=== PATIENT | female | born 1960 | race Hispanic/Latino ===

== ENCOUNTER → 2017-07-08 | Outpatient (REF) | payer MEDICARE, MEDICAID | LOC: M SFHCPLAZ 16:32 | PROVIDERS: ATTEND Family Medicine | DX: E11.8 Type 2 diabetes mellitus with unspecified complications (principal); Z86.39 Personal history of other endocrine, nutritional and metabolic disease; R25.2 Cramp and spasm; Z86.2 Personal history of diseases of the blood and blood-forming organs and certain disorders involving the immune mechanism; Z05.3 Observation and evaluation of newborn for suspected respiratory condition ruled out ==

== ENCOUNTER → 2017-07-22 | Outpatient (REF) | payer MEDICARE, MEDICAID ==
[2017-07-22 19:08] LABS: PERCENT SATURATION 10.9 % (13.2-45.0)
[2017-07-23 11:17] LABS: PRETREATED FOLATE FOR RBCFOL 11.8 NG/ML
== END ==
LOC: M SFHCPLAZ 16:19
PROVIDERS: ATTEND Family Medicine
DX: D64.9 Anemia, unspecified (principal)
CPT/HCPCS: 36415; 82607; 82728; 82747; 83550; G0463

== ENCOUNTER → 2018-03-21 | Outpatient (CLI) | payer MEDICARE, MEDICAID ==
[~2018-03-21] MED LIST: GASTROGRAFIN SOLUTION 30ML (Q9963) As Ordered; ISOVUE-370 76% 100ML VIAL (Q9967) As Ordered
== END ==
LOC: M RAD 08:49
DX: R19.02 Left upper quadrant abdominal swelling, mass and lump (principal)
CPT/HCPCS: Q9963

== ENCOUNTER → 2018-03-28 | Outpatient (CLI) | payer MEDICARE, MEDICAID ==
[2018-03-28 13:18] LABS: HEMATOCRIT 35.9 % (36.0-47.0); HEMOGLOBIN 11.1 g/dl (12.0-15.5); MEAN CORPUSCULAR HEMOGLOBIN 26.1 pg (27.0-33.0); MEAN CORPUSCULAR HGB CONC 30.9 g/dl (32.0-36.5); MEAN CORPUSCULAR VOLUME 84.3 fl (80.0-96.0); PLATELET COUNT, AUTOMATED 269 10^3/uL (150-450); RED BLOOD COUNT 4.26 10^6/uL (4.00-5.40); RED CELL DISTRIBUTION WIDTH 16.3 % (11.5-14.5); WHITE BLOOD COUNT 6.7 10^3/uL (4.0-10.0)
[2018-03-28 13:29] LABS: INR 0.95; PROTHROMBIN TIME 12.7 SECONDS (12.4-14.5)
[2018-03-28 13:30] LABS: PARTIAL THROMBOPLASTIN TIME 29.4 SECONDS (26.8-37.9)
[2018-03-28 13:48] LABS: ALBUMIN 4.2 GM/DL (3.2-5.2); ALBUMIN/GLOBULIN RATIO 0.98 (1.00-1.93); ALKALINE PHOSPHATASE 81 U/L (45-117); ALT/SGPT 21 U/L (12-78); ANION GAP 8 MEQ/L (8-16); AST/SGOT 16 U/L (7-37); BILIRUBIN,TOTAL 0.4 MG/DL (0.2-1.0); BLOOD UREA NITROGEN 23 MG/DL (7-18); CALCIUM LEVEL 9.4 MG/DL (8.5-10.1); CARBON DIOXIDE LEVEL 28 MEQ/L (21-32); CHLORIDE LEVEL 103 MEQ/L (98-107); CREATININE FOR GFR 1.17 MG/DL (0.55-1.30); GLOMERULAR FILTRATION RATE 50.4 (>51); GLUCOSE, FASTING 227 MG/DL (70-100); POTASSIUM SERUM 4.3 MEQ/L (3.5-5.1); SODIUM LEVEL 139 MEQ/L (136-145); TOTAL PROTEIN 8.5 GM/DL (6.4-8.2)
== END ==
LOC: M SMT 09:39
DX: Z01.818 Encounter for other preprocedural examination (principal); N28.89 Other specified disorders of kidney and ureter; Z79.84 Long term (current) use of oral hypoglycemic drugs; Z79.82 Long term (current) use of aspirin; Z79.899 Other long term (current) drug therapy
CPT/HCPCS: 80053

== ENCOUNTER → 2018-03-31 | Outpatient (CLI) | payer MEDICARE, MEDICAID | LOC: M WHC 08:00 | DX: N83.9 Noninflammatory disorder of ovary, fallopian tube and broad ligament, unspecified (principal) | CPT/HCPCS: 76817 ==

== ENCOUNTER → 2018-04-03 | Outpatient (CLI) | payer MEDICARE, MEDICAID | LOC: M CARPUL 11:11 | DX: I44.7 Left bundle-branch block, unspecified (principal) ==

== ENCOUNTER 2018-04-04 10:46 | Inpatient (IN) | payer MEDICARE, MEDICAID ==
[2018-04-04] MEDS: ROSUVASTATIN 10 MG TAB (CRESTOR) PO (09:00)
[2018-04-04] MEDS ORDERED: LIDOCAINE 1% MDV 20ML VIAL SQ (11:00)
[2018-04-04] MEDS: LR 1,000 ML IV ×2 (11:37→19:30)
[2018-04-04 12:18] LABS: BEDSIDE GLUCOSE 139 MG/DL (70-105)
[2018-04-04] MEDS ORDERED: GLUCOSE 4 GM CHEW TABLET PO (15:00)
[2018-04-04] MEDS ORDERED: MORPHINE 4 MG/ML 1ML VIAL/SYRINGE (J2270) IV (15:00)
[2018-04-04] MEDS ORDERED: GLUCAGON FOR INJ 1 MG VIAL (J1610) SC (15:00)
[2018-04-04] MEDS ORDERED: ONDANSETRON 4MG/2ML VIAL (J2405) IV ×2 (15:00→19:30)
[2018-04-04] MEDS ORDERED: ACETAMINOPHEN TAB 650MG DOSE (2X325MG) PO (15:00)
[2018-04-04] MEDS ORDERED: PERCOCET 5MG/325MG TAB PO ×2 (15:00→19:30)
[2018-04-04] MEDS ORDERED: DEXTROSE 50% 50 ML SYRINGE IV (15:00)
[2018-04-04] MEDS ORDERED: PROPOFOL 200 MG/20 ML VIAL As Ordered (15:33)
[2018-04-04] MEDS ORDERED: LIDOCAINE 2% INJ 100 MG/5 ML SDV (FOR ANES.) As Ordered (15:33)
[2018-04-04] MEDS ORDERED: MIDAZOLAM INJ 2 MG/2 ML VIAL (J2250) As Ordered (15:33)
[2018-04-04] MEDS ORDERED: dexameTHASONE 4 MG/ML 1ML VIAL (J1100) As Ordered (15:33)
[2018-04-04] MEDS ORDERED: ROCURONIUM BROMIDE 50 MG/5 ML VIAL As Ordered ×3 (15:33→16:27)
[2018-04-04] MEDS ORDERED: fentaNYL 250 MCG/5 ML INJECTION (J3010) As Ordered (15:33)
[2018-04-04] MEDS ORDERED: METOCLOPRAMIDE INJ 10MG/2ML VIAL (J2765) As Ordered (15:33)
[2018-04-04] MEDS ORDERED: HYDROmorphone HCL 2 MG/ML 1ML VIAL (J1170) As Ordered (15:34)
[2018-04-04] MEDS ORDERED: GLYCOPYRROLATE INJ 0.2 MG/ML 2 ML VIAL As Ordered ×2 (15:35)
[2018-04-04] MEDS ORDERED: ONDANSETRON 4MG/2ML VIAL (J2405) As Ordered (15:35)
[2018-04-04] MEDS ORDERED: NEOSTIGMINE 10 MG/10 ML VIAL (J2710) As Ordered (15:35)
[2018-04-04] MEDS: GABAPENTIN 300 MG CAP PO ×2 (16:00→22:44)
[2018-04-04] MEDS: FILTER 1.2 MICRON (ADULT TPN/MANNITOL/REMICADE) XX (16:57)
[2018-04-04] MEDS: MANNITOL 25% 12.5 GM/50 ML VIAL (J2150) As Ordered (17:13)
[2018-04-04] MEDS: HumaLOG INSULIN (NovoLOG) PER UNIT SC ×2 (17:30→20:10)
[2018-04-04] MEDS: BUPIVACAINE HCL 0.25% 30 ML VIAL As Ordered (18:56)
[2018-04-04] MEDS: LIDOCAINE 1% SDV INJ 30 ML VIAL As Ordered (18:58)
[2018-04-04] MEDS ORDERED: MEPERIDINE INJ 25 MG/ML VIAL (J2175) IV (19:30)
[2018-04-04] MEDS ORDERED: METOCLOPRAMIDE INJ 10MG/2ML VIAL (J2765) IV (19:30)
[2018-04-04] MEDS ORDERED: fentaNYL 100 MCG/2 ML INJECTION (J3010) IV (19:30)
[2018-04-04 19:40] LABS: HEMATOCRIT 32.8 % (36.0-47.0); HEMOGLOBIN 10.1 g/dl (12.0-15.5); MEAN CORPUSCULAR HGB CONC 30.8 g/dl (32.0-36.5); MEAN CORPUSCULAR VOLUME 84.3 fl (80.0-96.0); PLATELET COUNT, AUTOMATED 235 10^3/uL (150-450); RED BLOOD COUNT 3.89 10^6/uL (4.00-5.40); RED CELL DISTRIBUTION WIDTH 15.6 % (11.5-14.5); WHITE BLOOD COUNT 10.5 10^3/uL (4.0-10.0)
[2018-04-04 20:10] LABS: ANION GAP 10 MEQ/L (8-16); BLOOD UREA NITROGEN 16 MG/DL (7-18); CALCIUM LEVEL 8.4 MG/DL (8.5-10.1); CARBON DIOXIDE LEVEL 25 MEQ/L (21-32); CHLORIDE LEVEL 104 MEQ/L (98-107); CREATININE FOR GFR 1.07 MG/DL (0.55-1.30); GLOMERULAR FILTRATION RATE 55.9 (>51); GLUCOSE, FASTING 294 MG/DL (70-100); POTASSIUM SERUM 4.3 MEQ/L (3.5-5.1); SODIUM LEVEL 139 MEQ/L (136-145)
[2018-04-04 21:04] LABS: BEDSIDE GLUCOSE 320 MG/DL (70-105)
[2018-04-04] MEDS: ceFAZolin SOD 1 GM in D5W MINI-BAG PLUS 50 ML IV (22:43)
[2018-04-04] MEDS: NS 1,000 ML IV ×2 (22:43→22:47)
[2018-04-04] MEDS: DOCUSATE SODIUM 100 MG CAP PO (22:44)
[2018-04-05 01:41] LABS: BEDSIDE GLUCOSE 218 MG/DL (70-105)
[2018-04-05] MEDS: PERCOCET 5MG/325MG TAB PO ×3 (05:18→17:20)
[2018-04-05] MEDS: ceFAZolin SOD 1 GM in D5W MINI-BAG PLUS 50 ML IV (06:29)
[2018-04-05] MEDS: NS 1,000 ML IV (06:29)
[2018-04-05 06:40] LABS: HEMATOCRIT 28.4 % (36.0-47.0); MEAN CORPUSCULAR HEMOGLOBIN 26.1 pg (27.0-33.0); MEAN CORPUSCULAR HGB CONC 31.7 g/dl (32.0-36.5); MEAN CORPUSCULAR VOLUME 82.3 fl (80.0-96.0); PLATELET COUNT, AUTOMATED 227 10^3/uL (150-450); RED BLOOD COUNT 3.45 10^6/uL (4.00-5.40); RED CELL DISTRIBUTION WIDTH 15.4 % (11.5-14.5); WHITE BLOOD COUNT 7.3 10^3/uL (4.0-10.0)
[2018-04-05 06:56] LABS: ANION GAP 6 MEQ/L (8-16); BLOOD UREA NITROGEN 14 MG/DL (7-18); CALCIUM LEVEL 8.5 MG/DL (8.5-10.1); CARBON DIOXIDE LEVEL 28 MEQ/L (21-32); CHLORIDE LEVEL 105 MEQ/L (98-107); CREATININE FOR GFR 1.01 MG/DL (0.55-1.30); GLOMERULAR FILTRATION RATE 59.7 (>51); GLUCOSE, FASTING 170 MG/DL (70-100); POTASSIUM SERUM 4.5 MEQ/L (3.5-5.1); SODIUM LEVEL 139 MEQ/L (136-145)
[2018-04-05] MEDS: DOCUSATE SODIUM 100 MG CAP PO (08:03)
[2018-04-05] MEDS: HumaLOG INSULIN (NovoLOG) PER UNIT SC ×3 (08:03→17:19)
[2018-04-05] MEDS: GABAPENTIN 300 MG CAP PO ×2 (08:04→17:05)
[2018-04-05] MEDS: ROSUVASTATIN 10 MG TAB (CRESTOR) PO (08:05)
[2018-04-05] MEDS: LISINOPRIL 5 MG TAB PO (08:06)
[2018-04-05] MEDS: ASPIRIN 81 MG ENTERIC TAB PO (08:06)
[2018-04-05] MEDS: FUROSEMIDE 20 MG/2 ML VIAL (J1940) IV (10:16)
[2018-04-05 12:12] LABS: BEDSIDE GLUCOSE 122 MG/DL (70-105)
[2018-04-05 17:11] LABS: BEDSIDE GLUCOSE 216 MG/DL (70-105)
[2018-04-08 12:00] LABS: BEDSIDE GLUCOSE 321 MG/DL (70-105)
== END 2018-04-05 18:36 | disposition home or self-care (01) | DRG 661 ==
LOC: M OR 10:46 → M MS5PR 20:32
PROVIDERS: Urology
PROC: 0TB04ZZ Excision of Right Kidney, Percutaneous Endoscopic Approach (ICD-10-PCS; principal; 2018-04-04 12:45)
DX: N28.89 Other specified disorders of kidney and ureter (principal); I44.7 Left bundle-branch block, unspecified; E11.42 Type 2 diabetes mellitus with diabetic polyneuropathy; E78.2 Mixed hyperlipidemia; Z86.2 Personal history of diseases of the blood and blood-forming organs and certain disorders involving the immune mechanism; E11.319 Type 2 diabetes mellitus with unspecified diabetic retinopathy without macular edema; H54.8 Legal blindness, as defined in USA; Z86.73 Personal history of transient ischemic attack (TIA), and cerebral infarction without residual deficits

== ENCOUNTER → 2018-04-28 | Outpatient (REF) | payer MEDICARE, MEDICAID | LOC: M LABSMT 10:05 | DX: D21.9 Benign neoplasm of connective and other soft tissue, unspecified (principal); Z09 Encounter for follow-up examination after completed treatment for conditions other than malignant neoplasm ==

== ENCOUNTER → 2018-05-20 | Outpatient (CLI) | payer MEDICARE, MEDICAID ==
[2018-05-20 14:02] LABS: HEMATOCRIT 34.5 % (36.0-47.0); HEMOGLOBIN 10.5 g/dl (12.0-15.5); MEAN CORPUSCULAR HEMOGLOBIN 25.9 pg (27.0-33.0); MEAN CORPUSCULAR HGB CONC 30.4 g/dl (32.0-36.5); PLATELET COUNT, AUTOMATED 361 10^3/uL (150-450); RED BLOOD COUNT 4.06 10^6/uL (4.00-5.40); RED CELL DISTRIBUTION WIDTH 15.4 % (11.5-14.5); WHITE BLOOD COUNT 7.1 10^3/uL (4.0-10.0)
[2018-05-20 14:14] LABS: ANION GAP 8 MEQ/L (8-16); BLOOD UREA NITROGEN 18 MG/DL (7-18); CALCIUM LEVEL 9.3 MG/DL (8.5-10.1); CARBON DIOXIDE LEVEL 28 MEQ/L (21-32); CHLORIDE LEVEL 102 MEQ/L (98-107); CREATININE FOR GFR 1.08 MG/DL (0.55-1.30); GLOMERULAR FILTRATION RATE 55.3 (>51); GLUCOSE, FASTING 237 MG/DL (70-100); POTASSIUM SERUM 4.8 MEQ/L (3.5-5.1); SODIUM LEVEL 138 MEQ/L (136-145)
== END ==
LOC: M SMT 08:07
DX: D21.9 Benign neoplasm of connective and other soft tissue, unspecified (principal)
CPT/HCPCS: 80048

== ENCOUNTER → 2018-08-13 | Outpatient (REF) | payer MEDICARE, MEDICAID | LOC: M LAB REF 19:17 | DX: N85.8 Other specified noninflammatory disorders of uterus (principal) | CPT/HCPCS: 88304 ==

== ENCOUNTER → 2018-10-01 | Outpatient (REF) | payer MEDICARE, MEDICAID ==
[2018-10-01 17:40] LABS: BASO % 0.3 % (0.0-1.0); EOS # 0.1 10^3/uL (0.0-0.50); EOS % 1.9 % (0.0-3.0); HEMATOCRIT 35.1 % (36.0-47.0); HEMOGLOBIN 10.6 g/dl (12.0-15.5); IMMATURE GRANULOCYTE % 0.4 % (0-3.0); LYMPH # 2.3 10^3/uL (1.5-4.5); LYMPH % 32.2 % (24.0-44.0); MEAN CORPUSCULAR HGB CONC 30.2 g/dl (32.0-36.5); MEAN CORPUSCULAR VOLUME 82.8 fl (80.0-96.0); MONO # 0.6 10^3/uL (0.0-0.8); NEUTROPHILS % 57.2 % (36.0-66.0); PLATELET COUNT, AUTOMATED 334 10^3/uL (150-450); RED BLOOD COUNT 4.24 10^6/uL (4.00-5.40); RED CELL DISTRIBUTION WIDTH 16.3 % (11.5-14.5)
[2018-10-01 17:51] LABS: ALKALINE PHOSPHATASE 94 U/L (45-117); ALT/SGPT 27 U/L (12-78); ANION GAP 7 MEQ/L (8-16); AST/SGOT 16 U/L (7-37); BILIRUBIN,TOTAL 0.2 MG/DL (0.2-1.0); BLOOD UREA NITROGEN 25 MG/DL (7-18); CALCIUM LEVEL 9.7 MG/DL (8.5-10.1); CARBON DIOXIDE LEVEL 28 MEQ/L (21-32); CHLORIDE LEVEL 102 MEQ/L (98-107); CHOLESTEROL LEVEL 130 MG/DL (<200); CHOLESTEROL RISK RATIO 2.765 (<5); CPK CREATINE PHOSPHOKINASE 73 U/L (26-192); CREATININE FOR GFR 1.16 MG/DL (0.55-1.30); FERRITIN 21 NG/ML (8-252); GLOMERULAR FILTRATION RATE 50.9 (>51); GLUCOSE, FASTING 180 MG/DL (70-100); HDL CHOLESTEROL 47 MG/DL (>40); IRON (FE) 38 UG/DL (50-170); LDL CHOLESTEROL 57 MG/DL (<100); NON-HDL-C 83 MG/DL; PERCENT SATURATION 7.9 % (13.2-45.0); POTASSIUM SERUM 4.5 MEQ/L (3.5-5.1); SODIUM LEVEL 137 MEQ/L (136-145); TOTAL IRON BINDING CAPACITY 478 UG/DL (250-450); TRIGLYCERIDES LEVEL 129 MG/DL (<150)
[2018-10-01 17:52] LABS: ESTIMATED AVERAGE GLUCOSE 160 MG/DL (60-110); HEMOGLOBIN A1c 7.2 %
== END ==
LOC: M SFHCPLAZ 14:30
DX: E11.8 Type 2 diabetes mellitus with unspecified complications (principal); E78.2 Mixed hyperlipidemia; Z12.11 Encounter for screening for malignant neoplasm of colon; Z86.2 Personal history of diseases of the blood and blood-forming organs and certain disorders involving the immune mechanism
CPT/HCPCS: 82550

== ENCOUNTER → 2019-01-06 | Outpatient (REF) | payer MEDICARE, MEDICAID ==
[~2019-01-06] MED LIST changes: +ASPI81CH PO; +BYDU2INJ7 SC; +COLA100C5 PO; +CRES20TA PO; +GABA-843 PO; -GASTROGRAFIN SOLUTION 30ML (Q9963) As Ordered; +GLIP10TA6 PO; -ISOVUE-370 76% 100ML VIAL (Q9967) As Ordered; +LISI-542 PO; +METF500T13 PO; +OXYC1TAB23 PO; +PIOG1TAB37 PO; +RANI1SYP PO; +TYLE325C PO
[2019-01-06 11:59] LABS: HEMATOCRIT 34.8 % (36.0-47.0); HEMOGLOBIN 10.8 g/dl (12.0-15.5); MEAN CORPUSCULAR HEMOGLOBIN 24.9 pg (27.0-33.0); MEAN CORPUSCULAR VOLUME 80.4 fl (80.0-96.0); PLATELET COUNT, AUTOMATED 297 10^3/uL (150-450); RED BLOOD COUNT 4.33 10^6/uL (4.00-5.40); WHITE BLOOD COUNT 6.5 10^3/uL (4.0-10.0)
[2019-01-06 12:25] LABS: HEMOGLOBIN A1c 9.4 %
[2019-01-06 12:27] LABS: CALCIUM LEVEL 9.5 MG/DL (8.5-10.1); CREATININE FOR GFR 1.05 MG/DL (0.55-1.30); GLOMERULAR FILTRATION RATE 57.1 (>51); POTASSIUM SERUM 4.4 MEQ/L (3.5-5.1)
== END ==
LOC: M SFHCPLAZ 10:49
PROVIDERS: ATTEND Family Medicine
DX: E11.42 Type 2 diabetes mellitus with diabetic polyneuropathy (principal); R94.4 Abnormal results of kidney function studies; Z86.2 Personal history of diseases of the blood and blood-forming organs and certain disorders involving the immune mechanism
CPT/HCPCS: 36415; 80048; 83036; 85027; G0463

== ENCOUNTER 2019-03-20 10:45 | Day surgery (SDC) | payer MEDICARE, MEDICAID ==
[~2019-03-20] VITALS: Ht 149.9 cm; Wt 84.5 kg
[~2019-03-20 10:45] MED LIST changes: -ASPI81CH PO; +ASPI81CH49 PO; -CRES20TA PO; +CRES20TA2 PO
[2019-03-20] MEDS ORDERED: ONDANSETRON 4MG/2ML VIAL (J2405) IV ONE (11:30)
[2019-03-20] MEDS ORDERED: TRUL10IN SC (11:32)
[2019-03-20] MEDS ORDERED: GLIP10TA PO (11:32)
[2019-03-20 11:38] LABS: BASO % 0.3 % (0.0-1.0); EOS % 0.1 % (0.0-3.0); HEMATOCRIT 35.3 % (36.0-47.0); HEMOGLOBIN 10.9 g/dl (12.0-15.5); LYMPH # 2.5 10^3/uL (1.5-4.5); LYMPH % 21.8 % (24.0-44.0); MEAN CORPUSCULAR HEMOGLOBIN 25.1 pg (27.0-33.0); MEAN CORPUSCULAR HGB CONC 30.9 g/dl (32.0-36.5); MEAN CORPUSCULAR VOLUME 81.3 fl (80.0-96.0); MONO % 8.7 % (0.0-5.0); NEUTROPHILS # 7.9 10^3/uL (1.8-7.7); NEUTROPHILS % 68.8 % (36.0-66.0); PLATELET COUNT, AUTOMATED 307 10^3/uL (150-450); RED BLOOD COUNT 4.34 10^6/uL (4.00-5.40); WHITE BLOOD COUNT 11.4 10^3/uL (4.0-10.0)
[2019-03-20 12:09] LABS: ALBUMIN 4.2 GM/DL (3.2-5.2); ALT/SGPT 21 U/L (12-78); AMYLASE 50 U/L (25-115); BILIRUBIN,DIRECT 0.1 MG/DL (0.0-0.2); BILIRUBIN,TOTAL 0.4 MG/DL (0.2-1.0); BLOOD UREA NITROGEN 26 MG/DL (7-18); CALCIUM LEVEL 9.6 MG/DL (8.5-10.1); CARBON DIOXIDE LEVEL 27 MEQ/L (21-32); CHLORIDE LEVEL 105 MEQ/L (98-107); CK-MB VALUE MASS < 1.0 NG/ML (<3.6); CPK CREATINE PHOSPHOKINASE 54 U/L (26-192); CREATININE FOR GFR 1.77 MG/DL (0.55-1.30); GLOMERULAR FILTRATION RATE 31.3 (>51); GLUCOSE, FASTING 158 MG/DL (70-100); LIPASE 125 U/L (73-393); MB/CK RELATIVE INDEX 1.85 (< OR =4); POTASSIUM SERUM 4.1 MEQ/L (3.5-5.1); SODIUM LEVEL 140 MEQ/L (136-145); TOTAL PROTEIN 8.1 GM/DL (6.4-8.2); TROPONIN I < 0.02 NG/ML (< 0.10)
[2019-03-20] MEDS ORDERED: NS 1,000 ML IV ONE (13:00)
[2019-03-20] MEDS ORDERED: MORPHINE 2 MG/ML 1ML SYRINGE (J2270) IV ONE ×2 (13:15→14:15)
--- NOTE | 2019-03-20 13:51 | REP ---
CT ABDOMEN/PELVIS WITHOUT CONTRAST: CT abdomen/pelvis performed without oral or IV contrast. Sagittal and coronal reconstruction images are performed. Comparison made with prior CT, 03/21/2018. There is a stable subcentimeter nodular density in the left posterior costophrenic sulcus. There are very mild bibasilar fibrotic changes. Liver, gallbladder, spleen, and pancreas are grossly unremarkable. Adrenal gland thickening is noted, unchanged. There is no left hydronephrosis or nephrolithiasis, nor evidence of hydroureter. There is, however, moderate degree of right hydronephrosis caused by a stone in the proximal right ureter, which measures 13 x 10 x 8 mm. Previously noted mass in the lower pole of the right kidney has been removed with surgical sutures in that region. Subcentimeter calculus is seen in the right upper pole collecting system measuring about 3 mm. There is no abdominal aortic aneurysm. There is no adenopathy. There is no free air or free fluid. There is no bowel wall thickening. There are calcified mesenteric lymph nodes centrally. There is no evidence of appendicitis. No pelvic mass is seen. There are mild degenerative changes of the spine. There is a small hiatal hernia. IMPRESSION: Calculus in the proximal right ureter measuring 13 x 10 x 8 mm causes moderate degree of right hydronephrosis. There is also a 3 mm intrarenal calculus in the upper pole of the right kidney. No left hydronephrosis. No evidence of appendicitis. No other acute finding. Electronically Signed by Saleem Hodges MD 03/23/2019 01:37 P
[2019-03-20] MEDS ORDERED: OMEP-218 PO (14:33)
[2019-03-20] MEDS ORDERED: RANI1TAB6 PO (14:33)
[2019-03-20] MEDS ORDERED: METF500T4 PO (14:33)
[2019-03-20] MEDS ORDERED: NS 1,000 ML IV SCH (18:02)
[2019-03-20] MEDS ORDERED: MORPHINE 4 MG/ML 1ML VIAL/SYRINGE (J2270) IV PRN (18:15)
[2019-03-20] MEDS ORDERED: PERCOCET 5MG/325MG TAB PO PRN ×2 (18:15)
[2019-03-20] MEDS ORDERED: DEXTROSE 50% 50 ML SYRINGE IV PRN (18:15)
[2019-03-20] MEDS ORDERED: ONDANSETRON 4MG/2ML VIAL (J2405) IV PRN (18:15)
[2019-03-20] MEDS ORDERED: GLUCAGON FOR INJ 1 MG VIAL (J1610) SC PRN (18:15)
[2019-03-20] MEDS ORDERED: cefTRIAXone SOD 1 GM in D5W MINI-BAG PLUS 50 ML IV ONE (18:15)
[2019-03-20] MEDS ORDERED: ACETAMINOPHEN TAB 650MG DOSE (2X325MG) PO PRN (18:15)
[2019-03-20] MEDS ORDERED: GLUCOSE 4 GM CHEW TABLET PO PRN (18:15)
--- NOTE | 2019-03-20 18:33 | SMCUROLCON ---
Urology Consultation General Date of Consultation 03/20/19 Reason For Consultation This patient is seen for Kidney Stone. History of Present Illness This is a 58 y/o F w/ PMH significant for DM2, TIA, legally blind, right renal mass (leiomyoma s/p robotic partial nephrectomy 03/2018), HTN, and kidney stones, presenting to the ER today w/ acute onset right flank pain. She notes that the pain started yesterday evening and was associated w/ n/v. She denies fevers or dysuria. A noncontrast CT A/P obtained in the ER was notable for moderate right hydro due to an obstructing 1.3cm proximal right ureteral stone. Her WBC was mildly elevated at 11.4 and Cr was 1.77 from baseline of 1.1. UA notable for on ly 3 WBCs. Despite several doses of pain medications in the ER her pain has not been well-controlled. Past Medical History Medical History see HPI Surgical Hstory right robotic partial nephrectomy Medications Current Medications Current Medications Acetaminophen (Tylenol Tab) 650 mg Q4HP PRN PO MILD PAIN or TEMP > 101; Start 03/20/19 at 18:15 Dextrose (Dextrose 50%) 25 ml ASDIRECTED PRN IV SEE LABEL COMMENTS; Start 03/20/19 at 18:15 Docusate Sodium (Colace) 100 mg BID PO ; Start 03/20/19 at 21:00 Gabapentin (Neurontin) 600 mg Q8H PO ; Start 03/20/19 at 22:00 Glucagon (Glucagon) 1 mg ASDIRECTED PRN SC SEE LABEL COMMENTS; Start 03/20/19 at 18:15 Glucose (Glucose) 16 GM ASDIRECTED PRN PO SEE LABEL COMMENTS; Start 03/20/19 at 18:15 Home Med (Med Rec Complete!) ASDIRECTED XX ; Start 03/20/19 at 14:45; Stop 03/20/19 at 14:45; Status DC Insulin Human Lispro (HumaLOG INSULIN) See Protocol Table AC SC ; Start 03/21/19 at 07:30 Insulin Human Lispro (HumaLOG INSULIN) See Protocol Table QHS SC ; Start 03/20/19 at 21:00 Morphine Sulfate (Morphine Sulfate Inj) 2 mg Q2HP PRN IV SEVERE PAIN (PS 8-10); Start 03/20/19 at 18:15 Omeprazole (PriLOSEC) 20 mg DAILY PO ; Start 03/21/19 at 09:00 Ondansetron HCl (ZOFRAN INJection) 4 mg Q6HP PRN IV NAUSEA OR VOMITING; Start 03/20/19 at 18:15 Oxycodone/ Acetaminophen (Percocet 5mg/ 325mg Tablet) 1 tab Q4HP PRN PO MODERATE PAIN (PS 5-7); Start 03/20/19 at 18:15 Oxycodone/ Acetaminophen (Percocet 5mg/ 325mg Tablet) 2 tab Q4HP PRN PO MODERATE/SEVERE PAIN (PS 5-10); Start 03/20/19 at 18:15 Rosuvastatin Calcium (Crestor) 20 mg DAILY PO ; Start 03/21/19 at 09:00 Sodium Chloride 1,000 ml @ 75 mls/hr [id number] IV ; Start 03/20/19 at 18:02 Allergies Allergies: Coded Allergies: meclizine (Verified Allergy, Unknown, 03/20/19) Review of Systems Constitutional: Denies: Fever Pulmonary: Denies: Dyspnea, Cough Cardiovascular: Denies Chest Pain, Denies Palpitations Gastrointestinal: Reports: Nausea, Vomiting Genitourinary: Denies: Dysuria, Hematuria Musculoskeletal: Reports: Back Pain (right flank pain) Neurological: Denies: Weakness, Numbness Psych: Reports: Mood Normal Physical Examination General Exam: Alert, Cooperative, No Acute Distress Heart Exam: Rate Normal, Regular Rhythm Abdomen Exam: Soft; No: Tenderness Skin Exam: Nl turgor and temperature Neuro Exam: Normal Speech Psych Exam: Mental status NL, Mood NL Vital Signs/I&O Vital Signs Date Time Temp Pulse Resp B/P (MAP) Pulse Ox O2 Delivery O2 Flow Rate FiO2 03/20/19 14:18 18 03/20/19 14:08 99.2 99 138/61 (86) 97 Room Air Laboratory Data 24H Labs Laboratory Tests 2 03/20/19 11:15: Immature Granulocyte % (Auto) 0.3, White Blood Count 11.4H, Red Blood Count 4.34, Hemoglobin 10.9L, Hematocrit 35.3L, Mean Corpuscular Volume 81.3, Mean Corpuscular Hemoglobin 25.1L, Mean Corpuscular Hemoglobin Concent 30.9L, Red Cell Distribution Width 16.2H, Platelet Count 307, Neutrophils (%) (Auto) 68.8H, Lymphocytes (%) (Auto) 21.8L, Monocytes (%) (Auto) 8.7H, Eosinophils (%) (Auto) 0.1, Basophils (%) (Auto) 0.3, Neutrophils # (Auto) 7.9H, Lymphocytes # (Auto) 2.5, Monocytes # (Auto) 1.0H, Eosinophils # (Auto) 0.0, Basophils # (Auto) 0.0, Nucleated Red Blood Cells % (auto) 0.0, Anion Gap 8, Glomerular Filtration Rate 31.3L, Calcium Level 9.6, Aspartate Amino Transf (AST/SGOT) 18, Alanine Aminotransferase (ALT/SGPT) 21, Alkaline Phosphatase 74, Total Bilirubin 0.4, Direct Bilirubin 0.1, Total Creatine Kinase 54, Creatine Kinase MB < 1.0, Creatine Kinase MB Relative Index 1.85, Troponin I < 0.02, Total Protein 8.1, Albumin 4.2, Albumin/Globulin Ratio 1.08, Amylase Level 50, Lipase 125 03/20/19 11:43: Urine Color YELLOW, Urine Appearance CLEAR, Urine pH 5.0, Urine Specific Sharon 1.023, Urine Protein NEGATIVE, Urine Glucose (UA) NEGATIVE, Urine Ketones TRACEH, Urine Blood 1+H, Urine Nitrite NEGATIVE, Urine Bilirubin NEGATIVE, Urine Urobilinogen 0.2, Urine Leukocyte Esterase NEGATIVE, Urine WBC (Auto) 3, Urine RBC (Auto) 5H, Urine Hyaline Casts (Auto) 0, Urine Bacteria (Auto) NEGATIVE, Urine Squamous Epithelial Cells 1, Urine Mucus (Auto) SMALL, Urine Sperm (Auto) CBC/BMP Laboratory Tests 03/20/19 11:15 Red Blood Count 4.34, Mean Corpuscular Volume 81.3, Mean Corpuscular Hemoglobin 25.1 L, Mean Corpuscular Hemoglobin Concent 30.9 L, Red Cell Distribution Width 16.2 H, Neutrophils (%) (Auto) 68.8 H, Lymphocytes (%) (Auto) 21.8 L, Monocytes (%) (Auto) 8.7 H, Eosinophils (%) (Auto) 0.1, Basophils (%) (Auto) 0.3, Neutro phils # (Auto) 7.9 H, Lymphocytes # (Auto) 2.5, Monocytes # (Auto) 1.0 H, Eosinophils # (Auto) 0.0, Basophils # (Auto) 0.0 Assessment This is a 58 y/o F w/ MONSE and intractable pain due to a 1.3cm obstructing right ureteral stone. She will be admitted for pain control and kept NPO for possible cystoscopy and right ureteral stent placement this evening. Informed consent was signed in presence of her daughter after a discussion of the risks and benefits of the procedure. Plan - admit for same day surgery - percocet, morphine prn pain - IVF - strict I/Os - SCDs - SQH - rocephin ordered - NPO - patient signed out to Dr. Huff for possible cystoscopy and right ureteral stent placement this evening VALERIE DOVE MD Mar 20, 2019 18:33
--- NOTE | 2019-03-20 19:53 | ECGEPIP ---
Stationary ECG Study [facility] - ED Test Date: 2019-03-20 Pat Name: ANDREZ LIPSCOMB Department: Room: - Gender: F Rn Appeals: : 1960 Requested By: ROBERT Johnson PA-C Order Number: [id number] Reading MD: Audra Landrum Measurements Intervals [place] Rate: 75 P: 49 MA: 172 QRS: -7 QRSD: 133 T: 33 QT: 379 QTc: 426 Interpretive Statements SINUS RHYTHM LEFT BUNDLE BRANCH BLOCK NO PRIOR FOR COMPARISON Electronically Signed On 03-20-2019 19:53:24 EDT by Audra Landrum
[2019-03-20] MEDS ORDERED: LIDOCAINE 2% 5ML JELLY UROJET As Ordered ONE (20:54)
[2019-03-20] MEDS ORDERED: ceFAZolin 2 GM/D5W 50 ML IV BAG (J0690 PER 500MG) As Ordered ONE (20:54)
[2019-03-20] MEDS ORDERED: CONRAY-60 60% 50ML VIAL (Q9961) As Ordered ONE (20:58)
[2019-03-20] MEDS ORDERED: DOCUSATE SODIUM 100 MG CAP PO SCH (21:00)
[2019-03-20] MEDS ORDERED: HumaLOG INSULIN (NovoLOG) PER UNIT SC SCH (21:00)
[2019-03-20] MEDS ORDERED: dexameTHASONE 4 MG/ML 1ML VIAL (J1100) As Ordered ONE (21:13)
[2019-03-20] MEDS ORDERED: fentaNYL 250 MCG/5 ML INJECTION (J3010) As Ordered ONE (21:13)
[2019-03-20] MEDS ORDERED: MIDAZOLAM INJ 2 MG/2 ML VIAL (J2250) As Ordered ONE (21:13)
[2019-03-20] MEDS ORDERED: PROPOFOL 200 MG/20 ML VIAL As Ordered ONE (21:13)
[2019-03-20] MEDS ORDERED: ONDANSETRON 4MG/2ML VIAL (J2405) As Ordered ONE (21:13)
[2019-03-20] MEDS ORDERED: LIDOCAINE 2% INJ 100 MG/5 ML SDV (FOR ANES.) As Ordered ONE (21:13)
--- NOTE | 2019-03-20 21:35 | ROOPDOC ---
[facility] Report Of Operation Report of Operation The patient was seen on 03/20/19 at 21:34. DATE OF PROCEDURE: 03/20/19 PREPROCEDURE DIAGNOSES:right ureteral obstruction POSTPROCEDURE DIAGNOSES: same as above. PROCEDURE: cystoscopy/right retrograde pyelogram/stone displacement/insertion of 6F variable length JJ stent. SURGEON: Kathrin Srinivasan MD SOLDERER TORCH: none ANESTHESIA: MAC. ESTIMATED BLOOD LOSS: Approximately <5 mL. COMPLICATIONS: none. REMARKS: stone displaced. PROCEDURE NOTE: Patient brought to the operating room and placed in the dorsallithotomy position after the induction of anesthesia (IV sedation). Complete time out performed. Perineum and genitalia were prepped and draped in usual sterile fashion. 22f cystourethroscope placed per urethra. Cystoscopy performed which was unremarkbale. Normal urothelium. No evidence of any tumor recurrence. 6f open ended ureteral cahter was advanced under fluoroscopic guidance. Clear efflux of urine was noted. The stone was easily idenitfied. [place] GW was advanced and the stone was easily displaced to renal pelvic. Retrograde pyleogram was performed with 8cc 50% contrast.Collecting system was opacified. Stone was seen as a filling defect. No other pathology was visualized. The ureteral catheter was exchanged for a guidewire and a 6f variable length soft Cook stent was successfully positioned with the proximal coil in the renal pelvis and the distal coil in the bladder. Guidewire was removed. Bladder was evacuated and cystourethroscope was withdrawn. Patient tolerated procedure well and transferred to the in satisfactory condition. f/u next week d/w patients daughter with Dr Elizondo. KATHRIN SRINIVASAN MD Mar 20, 2019 21:35
[2019-03-20 21:49] VITALS: BP 131/61
[2019-03-20] MEDS ORDERED: GABAPENTIN 300 MG CAP PO SCH (22:00)
[2019-03-21] MEDS ORDERED: HumaLOG INSULIN (NovoLOG) PER UNIT SC SCH (07:30)
[2019-03-21] MEDS ORDERED: OMEPRAZOLE 20 MG CAP PO SCH (09:00)
[2019-03-21] MEDS ORDERED: ROSUVASTATIN 10 MG TAB (CRESTOR) PO SCH (09:00)
--- NOTE | 2019-03-21 09:06 | REP ---
RETROGRADE PYELOGRAM: HISTORY: Stent placement. Three radiographs were obtained with a C-arm. Contrast material is present in the right renal collecting system and ureter. The patient is status post right ureteral stent placement. Fluoro time 35 seconds. IMPRESSION: Retrograde pyelogram as described above. Electronically Signed by Luis E Bass MD 03/21/2019 09:18 A
== END 2019-03-20 21:49 | disposition home or self-care (01) ==
LOC: M ED 10:45 → M SDC 14:18
PROVIDERS: ATTEND Urology
DX: N20.1 Calculus of ureter (principal); E11.9 Type 2 diabetes mellitus without complications; I10 Essential (primary) hypertension; E78.5 Hyperlipidemia, unspecified; E66.9 Obesity, unspecified; Z86.73 Personal history of transient ischemic attack (TIA), and cerebral infarction without residual deficits; H54.8 Legal blindness, as defined in USA; Z79.4 Long term (current) use of insulin; Z79.899 Other long term (current) drug therapy; Z88.8 Allergy status to other drugs, medicaments and biological substances; G47.30 Sleep apnea, unspecified; Z79.82 Long term (current) use of aspirin
CPT/HCPCS: 52332; 74176; 74420; 80048; 80076; 81001; 82150; 82550; 82553; 83690; 84484; 85025; 93005; 96361; 96374; 96375; 96376; 99284; C1769; C2617; J0690; J1100; J2250; J2270; J2405; J3010; Q9961

== ENCOUNTER → 2019-04-21 | Outpatient (CLI) | payer MEDICARE, MEDICAID ==
[~2019-04-21] MED LIST changes: +CENT1TAB PO; +GLIP10TA PO; +IRON325T2 PO; +METF500T4 PO; +OMEP-218 PO; +RANI1TAB6 PO; +TRUL10IN SC
--- NOTE | 2019-04-21 12:04 | REP ---
CHEST X-RAY: Three views. HISTORY: Kidney stone. Preop. COMPARISON CHEST X-RAY: March 28, 2018. FINDINGS: A right-sided pigtail ureteral stent is noted at the bottom edge of the field of view. The lungs are symmetrically aerated and clear. The pleural angles are sharp. Heart size is borderline. Pulmonary vasculature is not increased. Pleural angles are sharp. No significant bony abnormality is seen. IMPRESSION: Borderline heart size unchanged. Otherwise no active disease. Right ureteral stent noted. Electronically Signed by Lalo Anna MD 04/21/2019 04:13 P
[2019-04-21 13:24] LABS: HEMATOCRIT 33.5 % (36.0-47.0); HEMOGLOBIN 10.2 g/dl (12.0-15.5); MEAN CORPUSCULAR HGB CONC 30.4 g/dl (32.0-36.5); MEAN CORPUSCULAR VOLUME 85.2 fl (80.0-96.0); PLATELET COUNT, AUTOMATED 292 10^3/uL (150-450); RED BLOOD COUNT 3.93 10^6/uL (4.00-5.40); WHITE BLOOD COUNT 7.6 10^3/uL (4.0-10.0)
[2019-04-21 13:27] LABS: APPEARANCE, URINE CLOUDY (CLEAR); BACTERIA, URINE AUTO NEGATIVE (NEGATIVE); BILIRUBIN, URINE AUTO NEGATIVE (NEGATIVE); BLOOD, URINE BLOOD 3+ (NEGATIVE); COLOR, URINE YELLOW (YELLOW); GLUCOSE, URINE (UA) AUTO 1+ mg/dL (NEGATIVE); KETONE, URINE AUTO NEGATIVE (NEGATIVE); LEUKOCYTE ESTERASE, URINE AUTO 2+ (NEGATIVE); MUCUS, URINE SMALL (NEGATIVE); NITRITE, URINE AUTO NEGATIVE (NEGATIVE); PROTEIN, URINE AUTO 2+ mg/dL (NEGATIVE); RBC, URINE AUTO TNTC /HPF (0-3); SPECIFIC GRAVITY URINE AUTO 1.018 (1.002-1.035); SQUAMOUS EPITHELIAL CELL UR AU 1 /HPF (0-6); UROBILINOGEN, URINE AUTO 0.2 mg/dL (0.0-2.0); WBC, URINE AUTO 52 /HPF (0-3)
[2019-04-21 13:29] LABS: CALCIUM LEVEL 9.6 MG/DL (8.8-10.2); CREATININE FOR GFR 1.1 MG/DL (0.55-1.30); GLOMERULAR FILTRATION RATE 53.9 (>45); POTASSIUM SERUM 4.2 MEQ/L (3.5-5.1)
[2019-04-21 13:32] LABS: INR 0.97
[2019-04-21 13:33] LABS: PARTIAL THROMBOPLASTIN TIME 33.2 SECONDS (25.4-37.6)
== END ==
LOC: M SMT 09:43
PROVIDERS: ATTEND Nurse Practitioner Family
DX: Z01.818 Encounter for other preprocedural examination (principal); N20.0 Calculus of kidney; E11.65 Type 2 diabetes mellitus with hyperglycemia

== ENCOUNTER → 2019-04-22 | Outpatient (REF) | payer MEDICARE, MEDICAID ==
[2019-04-22 21:32] LABS: HEMOGLOBIN A1c 7.5 %
== END ==
LOC: M LABDRWAD 10:58
PROVIDERS: ATTEND Family Medicine
DX: E11.42 Type 2 diabetes mellitus with diabetic polyneuropathy (principal)

== ENCOUNTER 2019-04-29 08:53 | Day surgery (SDC) | payer MEDICARE, MEDICAID ==
[~2019-04-29] VITALS: Ht 149.9 cm; Wt 80.7 kg
[~2019-04-29 08:53] MED LIST changes: +LIDOCAINE 1% MDV 20ML VIAL SQ PRN; +LR 1,000 ML IV ONE
[2019-04-29] MEDS ORDERED: PROPOFOL 200 MG/20 ML VIAL As Ordered ONE (09:30)
[2019-04-29] MEDS ORDERED: fentaNYL 100 MCG/2 ML INJECTION (J3010) As Ordered ONE ×3 (09:30→11:36)
[2019-04-29] MEDS ORDERED: LIDOCAINE 2% INJ 100 MG/5 ML SDV (FOR ANES.) As Ordered ONE (09:30)
[2019-04-29] MEDS ORDERED: MIDAZOLAM INJ 2 MG/2 ML VIAL (J2250) As Ordered ONE (09:30)
[2019-04-29] MEDS ORDERED: KETOROLAC 60 MG/2 ML VIAL (J1885) As Ordered ONE (10:49)
[2019-04-29] MEDS ORDERED: ONDANSETRON 4MG/2ML VIAL (J2405) As Ordered ONE (10:49)
[2019-04-29] MEDS ORDERED: METOCLOPRAMIDE INJ 10MG/2ML VIAL (J2765) As Ordered ONE (10:49)
[2019-04-29] MEDS ORDERED: CONRAY-60 60% 50ML VIAL (Q9961) As Ordered ONE (11:27)
--- NOTE | 2019-04-29 12:11 | REP ---
Retrograde pyelogram History: Stent placement Three portable radiographs were obtained with a C-arm. A small amount of contrast material is present in the right renal collecting system. The patient is status post right ureteral stent placement. Fluoroscopic time 11 seconds. Impression: Retrograde pyelogram as described above. Electronically Signed by Luis E Bass MD 04/29/2019 12:03 P
[2019-04-29] MEDS ORDERED: oxyCODONE 5MG TAB PO PRN (12:45)
[2019-04-29] MEDS ORDERED: fentaNYL 100 MCG/2 ML INJECTION (J3010) IV PRN (12:45)
[2019-04-29] MEDS ORDERED: LR 1,000 ML IV SCH (12:45)
[2019-04-29] MEDS ORDERED: METOCLOPRAMIDE INJ 10MG/2ML VIAL (J2765) IV PRN (12:45)
[2019-04-29] MEDS ORDERED: PROMETHAZINE INJ 25 MG/ML VIAL (J2550) IV PRN (12:45)
[2019-04-29] MEDS ORDERED: PERCOCET 5MG/325MG TAB PO PRN (12:45)
--- NOTE | 2019-04-29 14:27 | RO ---
DATE OF PROCEDURE: 04/29/2019 PREPROCEDURE DIAGNOSIS: Right kidney stone. POSTPROCEDURE DIAGNOSIS: Right kidney stone. PROCEDURE: Cystoscopy, right ureteroscopy with laser lithotripsy and basket extraction of stones, right retrograde pyelogram with intraoperative interpretation of images, right ureteral stent exchange. SURGEON: Dr. Alli Elizondo HUMAN RESOURCES DESIGNATE: None. ANESTHESIA: General. OPERATIVE INDICATIONS: This is a 59-year-old female who was found to have a 1.3 cm obstructing right ureteropelvic junction stone approximately a month ago. She had a stent placed at that time. She was brought to the operating room today for definitive treatment of her stone. DESCRIPTION OF PROCEDURE: The patient was brought to the operating room where general anesthesia was induced. Prophylactic antibiotics were infused. She was then placed in dorsal lithotomy position and prepped and draped in the usual sterile fashion. A rigid cystoscope was inserted into the urethral meatus and advanced into the bladder. A previously placed stent was seen and withdrawn from the ureter until the distal end was seen protruding from urethral meatus. A guidewire was then advanced up the stent and then the stent was removed completely. A ureteral access sheath was then advanced over the wire and then I went up with a flexible ureteroscope. The right kidney thoroughly examined. Of note, she had a 1.3 cm stone in the mid pole calyx at the time. She also had a large old blood in the upper pole calyx. At this point, the stone was fragmented into smaller pieces using a 200 micron laser fiber and then all the fragments were removed using a basket. The clot was also broken down into smaller pieces. I tried to basket remove it but it just kept breaking into smaller pieces. Of note, the patient probably still had a few very tiny stone fragments most likely less than 1 mm and they should be small enough to pass. Also of note, the patient's stone did not appear to be radiopaque as it could not be seen on fluoroscopy. Once satisfied that all larger stone fragments had been removed, a retrograde pyelogram was performed and notable for moderate right hydronephrosis, no extravasation. The ureteroscope was then removed along with access sheath and no additional stones were seen within the ureter. I then utilized the wire to advance a 6 Lithuanian x 22-32 cm JJ ureteral stent up into the right collecting system. The wire was removed and there were adequate curls of the stent in the right renal pelvis and in the bladder. The bladder was then emptied of all fluid and this marked conclusion of the procedure. The patient was then taken out of the dorsal lithotomy position, awakened from anesthesia and transported to the recovery room in stable condition. Estimated blood loss: 10 mL. Complications: None. Specimen: Kidney stone fragments. Plan: The patient will followup in the clinic in approximately 1-2 weeks for stent removal.
[2019-04-29 15:50] VITALS: BP 133/69
== END 2019-04-29 16:00 | disposition home or self-care (01) ==
LOC: M SDC 08:53
PROVIDERS: ATTEND Urology
DX: N20.0 Calculus of kidney (principal); I25.10 Atherosclerotic heart disease of native coronary artery without angina pectoris; I10 Essential (primary) hypertension; E78.5 Hyperlipidemia, unspecified; E11.9 Type 2 diabetes mellitus without complications; K21.9 Gastro-esophageal reflux disease without esophagitis; D64.9 Anemia, unspecified; Z79.82 Long term (current) use of aspirin; Z79.84 Long term (current) use of oral hypoglycemic drugs; Z79.899 Other long term (current) drug therapy; Z86.73 Personal history of transient ischemic attack (TIA), and cerebral infarction without residual deficits
CPT/HCPCS: 52356; 74420; 82360; 88300; C1769; C1894; C2617; J0690; J1885; J2250; J2405; J2765; J3010; Q9961

== ENCOUNTER → 2019-05-12 | Outpatient (REF) | payer MEDICARE, MEDICAID ==
[~2019-05-12] MED LIST changes: -LIDOCAINE 1% MDV 20ML VIAL SQ PRN; -LR 1,000 ML IV ONE
== END ==
LOC: M SMT 17:20
PROVIDERS: ATTEND Urology
DX: N20.1 Calculus of ureter (principal)

== ENCOUNTER → 2019-06-08 | Outpatient (CLI) | payer MEDICARE, MEDICAID ==
[~2019-06-08] MED LIST changes: +METF-791 PO; -METF500T4 PO; +RANI-397 PO; -RANI1TAB6 PO
--- NOTE | 2019-06-08 18:21 | REP ---
BILATERAL MAMMOGRAM WITH 3D TOMOSYNTHESIS, DIAGNOSTIC MAMMOGRAM LEFT BEAST AND LEFT BREAST ULTRASOUND: No family history of breast cancer. Tyrer-Cuzick lifetime risk of breast cancer 10.0%. Patient sustained trauma left breast medially 05/22/2019 which subsequent bruising and a palpable lump which has decreased in size the prior study. The area is marked on the skin with a triangular marker. Bilateral mammogram was performed in the MLO and CC projections with 3D tomosynthesis and additional spot compression views of the left breast. There is asymmetric ill-defined opacity at the site of the palpable lump and bruising medially in the left breast. No other evidence of mass or clustered microcalcifications are seen bilaterally. Coarse benign type calcifications are present. There are no other changes compared with the prior mammogram of 04/04/2017 in [place]. Real-time sonographic evaluation of the left breast was performed medially at the site of the bruising and palpable lump. There is a cystic area measuring 2.2 x 0.9 x 1.9 cm consistent with resolving hematoma. IMPRESSION: ACR II benign. No suspicious mass. No clustered microcalcifications. At the site of traumatic bruising and palpable lump medially in the left breast there is ill-defined parenchymal opacity which demonstrates cystic changes by ultrasound measuring 2.2 x 0.9 x 1.9 cm. This is consistent with a resolving hematoma. Recommend followup mammogram 1 one year. BIRADS 2: BI-RADS/ACR category 2 mammogram. Benign Findings. This mammogram was interpreted with the aid of an FDA-approved computer-aided detection system. The patient states she had a clinical breast exam in 05/2019. The patient letter being requested is M2. Electronically Signed by Saleem Hodges MD 06/09/2019 05:26 P
== END ==
LOC: M RAD 14:27
PROVIDERS: ATTEND Nurse Practitioner Family
DX: N64.89 Other specified disorders of breast (principal)
CPT/HCPCS: 76642; 77066; G0279

== ENCOUNTER → 2019-12-28 | Outpatient (CLI) | payer MEDICARE, MEDICAID ==
[2019-12-28 15:57] LABS: BASO # 0.1 10^3/uL (0.0-0.2); BASO % 0.7 % (0.0-1.0); EOS # 0.1 10^3/uL (0.0-0.5); EOS % 1.6 % (0.0-3.0); HEMATOCRIT 36.2 % (36.0-47.0); LYMPH % 30.3 % (24.0-44.0); MEAN CORPUSCULAR HEMOGLOBIN 25.1 pg (27.0-33.0); MEAN CORPUSCULAR HGB CONC 30.4 g/dl (32.0-36.5); MEAN CORPUSCULAR VOLUME 82.5 fl (80.0-96.0); MONO # 0.5 10^3/uL (0.0-0.8); MONO % 7.9 % (0.0-5.0); NEUTROPHILS % 59.2 % (36.0-66.0); PLATELET COUNT, AUTOMATED 302 10^3/uL (150-450); RED BLOOD COUNT 4.39 10^6/uL (4.00-5.40); WHITE BLOOD COUNT 6.7 10^3/uL (4.0-10.0)
== END ==
LOC: M LABDRWAD 10:45
PROVIDERS: ATTEND Ophthalmology Retina Specialist
DX: H20.019 Primary iridocyclitis, unspecified eye (principal); E11.42 Type 2 diabetes mellitus with diabetic polyneuropathy; E78.2 Mixed hyperlipidemia; N18.3 Chronic kidney disease, stage 3 (moderate); Z86.2 Personal history of diseases of the blood and blood-forming organs and certain disorders involving the immune mechanism; M51.34 Other intervertebral disc degeneration, thoracic region

== ENCOUNTER → 2019-12-28 | Outpatient (CLI) | payer MEDICARE, MEDICAID ==
--- NOTE | 2019-12-28 11:31 | REP ---
CHEST X-RAY: Two views. HISTORY: No history provided. COMPARISON STUDY: April 21, 2019. FINDINGS: The lungs are symmetrically aerated and clear. The heart is mildly prominent in size with cardiothoracic ratio 50.0%. This is unchanged. Pulmonary vasculature is not increased. There is some aortic calcification. There are degenerative changes in the thoracic spine. The pleural angles are sharp. IMPRESSION: Mildly prominent heart unchanged. Otherwise no acute disease. Electronically Signed by Lalo Anna MD 12/28/2019 11:49 A
== END ==
LOC: M ADAMS 10:39
PROVIDERS: ATTEND Ophthalmology Retina Specialist
DX: H20.019 Primary iridocyclitis, unspecified eye (principal); M51.34 Other intervertebral disc degeneration, thoracic region

== ENCOUNTER → 2019-12-28 | Outpatient (REF) | payer MEDICARE, MEDICAID ==
[2019-12-28 13:38] LABS: HEMATOCRIT 37.8 % (36.0-47.0); HEMOGLOBIN 11.3 g/dl (12.0-15.5); MEAN CORPUSCULAR HEMOGLOBIN 24.9 pg (27.0-33.0); MEAN CORPUSCULAR HGB CONC 29.9 g/dl (32.0-36.5); MEAN CORPUSCULAR VOLUME 83.4 fl (80.0-96.0); PLATELET COUNT, AUTOMATED 314 10^3/uL (150-450); RED BLOOD COUNT 4.53 10^6/uL (4.00-5.40); WHITE BLOOD COUNT 7.8 10^3/uL (4.0-10.0)
[2019-12-28 13:53] LABS: CALCIUM LEVEL 9.7 MG/DL (8.8-10.2); CHOLESTEROL RISK RATIO 3.136 (<5); CREATININE FOR GFR 1.13 MG/DL (0.55-1.30); GLOMERULAR FILTRATION RATE 52.3 (>45); PERCENT SATURATION 10.5 % (13.2-45.0); POTASSIUM SERUM 4.8 MEQ/L (3.5-5.1)
[2019-12-28 14:20] LABS: HEMOGLOBIN A1c 7.8 %
== END ==
LOC: M SFHCADAM 07:53
PROVIDERS: ATTEND Family Medicine
DX: E11.42 Type 2 diabetes mellitus with diabetic polyneuropathy (principal); E78.2 Mixed hyperlipidemia; N18.3 Chronic kidney disease, stage 3 (moderate); Z86.2 Personal history of diseases of the blood and blood-forming organs and certain disorders involving the immune mechanism

== ENCOUNTER → 2020-01-28 | Outpatient (REF) | payer MEDICARE, MEDICAID ==
[2020-01-28 13:18] LABS: ALBUMIN 4.1 GM/DL (3.2-5.2); ALT/SGPT 26 U/L (12-78); BILIRUBIN,TOTAL 0.4 MG/DL (0.2-1.0); BLOOD UREA NITROGEN 23 MG/DL (7-18); CARBON DIOXIDE LEVEL 28 MEQ/L (21-32); CHLORIDE LEVEL 105 MEQ/L (98-107); CREATININE FOR GFR 1.05 MG/DL (0.55-1.30); GLOMERULAR FILTRATION RATE 56.9 (>45); GLUCOSE, FASTING 82 MG/DL (70-100); POTASSIUM SERUM 4.4 MEQ/L (3.5-5.1); SODIUM LEVEL 139 MEQ/L (136-145); TOTAL PROTEIN 7.7 GM/DL (6.4-8.2)
== END ==
LOC: M SFHCPLAZ 09:59
PROVIDERS: ATTEND Internal Medicine Infectious Disease
DX: R76.12 Nonspecific reaction to cell mediated immunity measurement of gamma interferon antigen response without active tuberculosis (principal); H20.9 Unspecified iridocyclitis
CPT/HCPCS: 36415; 80053; 86780; G0463

== ENCOUNTER → 2020-05-13 | Outpatient (CLI) | payer MEDICARE, MEDICAID ==
[~2020-05-13] MED LIST changes: -METF-791 PO; +METF-838 PO
[2020-05-13 16:56] LABS: HEMOGLOBIN 11.6 g/dl (12.0-15.5); MEAN CORPUSCULAR HEMOGLOBIN 25.9 pg (27.0-33.0); MEAN CORPUSCULAR HGB CONC 30.5 g/dl (32.0-36.5); MEAN CORPUSCULAR VOLUME 84.8 fl (80.0-96.0); PLATELET COUNT, AUTOMATED 301 10^3/uL (150-450); RED BLOOD COUNT 4.48 10^6/uL (4.00-5.40); WHITE BLOOD COUNT 9.5 10^3/uL (4.0-10.0)
[2020-05-13 17:03] LABS: CALCIUM LEVEL 10.1 MG/DL (8.8-10.2); CREATININE FOR GFR 1.26 MG/DL (0.55-1.30); PERCENT SATURATION 11.7 % (13.2-45.0); POTASSIUM SERUM 4.4 MEQ/L (3.5-5.1)
== END ==
LOC: M PLALAB 13:40
PROVIDERS: ATTEND Family Medicine
DX: N18.3 Chronic kidney disease, stage 3 (moderate) (principal); Z86.2 Personal history of diseases of the blood and blood-forming organs and certain disorders involving the immune mechanism
CPT/HCPCS: 36415; 80048; 82728; 83550; 85027; G0463

== ENCOUNTER → 2020-06-30 | Outpatient (REF) | payer MEDICARE, MEDICAID ==
[2020-08-14 12:01] LABS: CREATININE, URINE 33.3 MG/DL; MALB URINE SIEMENS 13.5 MG/L; MAU/CREAT RATIO 40.5 MCG/MG (0.0-30.0)
== END ==
LOC: M LAB REF 15:53
PROVIDERS: ATTEND Nurse Practitioner Family
DX: E11.65 Type 2 diabetes mellitus with hyperglycemia (principal)

== ENCOUNTER → 2020-08-19 | Outpatient (REF) | payer MEDICARE, MEDICAID ==
[2020-08-19 17:56] LABS: CALCIUM LEVEL 9.4 MG/DL (8.8-10.2); CREATININE FOR GFR 1.07 MG/DL (0.55-1.30); GLOMERULAR FILTRATION RATE 55.5 (>45); POTASSIUM SERUM 4.4 MEQ/L (3.5-5.1)
== END ==
LOC: M LABDRWAD 16:49
PROVIDERS: ATTEND Family Medicine
DX: N18.3 Chronic kidney disease, stage 3 (moderate) (principal)

== ENCOUNTER → 2021-03-21 | Outpatient (REF) | payer MEDICARE, MEDICAID ==
[~2021-03-21] MED LIST changes: +GABA-282 PO; -GABA-843 PO; -LISI-542 PO; +LISI-898 PO
[2021-03-21 12:44] LABS: HEMATOCRIT 37.3 % (36.0-47.0); HEMOGLOBIN 11.2 g/dl (12.0-15.5); MEAN CORPUSCULAR VOLUME 86.7 fl (80.0-96.0); PLATELET COUNT, AUTOMATED 275 10^3/uL (150-450); WHITE BLOOD COUNT 7.4 10^3/uL (4.0-10.0)
[2021-03-21 12:59] LABS: HEMOGLOBIN A1c 7.6 %
[2021-03-21 13:20] LABS: CALCIUM LEVEL 9.8 MG/DL (8.8-10.2); CHOLESTEROL RISK RATIO 2.857 (<5); CREATININE FOR GFR 1.1 MG/DL (0.55-1.30); GLOMERULAR FILTRATION RATE 53.8 (>45)
== END ==
LOC: M SFHCADAM 08:28
PROVIDERS: ATTEND Family Medicine
DX: Z86.2 Personal history of diseases of the blood and blood-forming organs and certain disorders involving the immune mechanism (principal); E11.42 Type 2 diabetes mellitus with diabetic polyneuropathy; E78.2 Mixed hyperlipidemia; N18.31 Chronic kidney disease, stage 3a

== ENCOUNTER → 2021-04-13 | Outpatient (REF) | payer MEDICARE, MEDICAID ==
[2021-04-13 15:33] LABS: HEMATOCRIT 35.7 % (36.0-47.0); HEMOGLOBIN 10.8 g/dl (12.0-15.5); MEAN CORPUSCULAR HEMOGLOBIN 26.2 pg (27.0-33.0); MEAN CORPUSCULAR HGB CONC 30.3 g/dl (32.0-36.5); MEAN CORPUSCULAR VOLUME 86.7 fl (80.0-96.0); PLATELET COUNT, AUTOMATED 259 10^3/uL (150-450); RED BLOOD COUNT 4.12 10^6/uL (4.00-5.40); WHITE BLOOD COUNT 6.2 10^3/uL (4.0-10.0)
[2021-04-13 15:39] LABS: INR 0.98; PROTHROMBIN TIME 13.2 SECONDS (12.5-14.3)
[2021-04-13 15:40] LABS: PARTIAL THROMBOPLASTIN TIME 28.9 SECONDS (24.2-38.5)
== END ==
LOC: M SFHCPLAZ 12:20
PROVIDERS: ATTEND Family Medicine
DX: R04.0 Epistaxis (principal); Z86.2 Personal history of diseases of the blood and blood-forming organs and certain disorders involving the immune mechanism

== ENCOUNTER → 2021-05-09 | Outpatient (CLI) | payer MEDICARE, MEDICAID ==
--- NOTE | 2021-05-09 13:31 | REP ---
INDICATION: Q79.59 SLIGH BULGE,FIRM SUBCUTANEOUS NODULE LT MID ABDOMEN. COMPARISON: None. TECHNIQUE: Ultrasonography over a palpable mass left upper quadrant FINDINGS: A somewhat echogenic nodule is suspected over the clinical region of interest measuring 3.1 by 1.4 x 1.8 cm. IMPRESSION: Limited evaluation of the suspected solid nodule as described above. MRI is recommended for further evaluation. <Electronically signed by Rob Galvan > 05/09/21 0522
== END ==
LOC: M WHC 08:15
PROVIDERS: ATTEND Family Medicine
DX: Q79.59 Other congenital malformations of abdominal wall (principal)

== ENCOUNTER → 2021-05-26 | Outpatient (CLI) | payer MEDICARE, MEDICAID ==
--- NOTE | 2021-05-26 14:26 | REPMRS ---
Patient History The patient states she has not had a clinical breast exam in over a year. Patient is postmenopausal. No known family history of cancer. Patient states no breast complaints today. Patient has signed MRS History Sheet. Digital Woman Screen Mammo: May 26, 2021 - Exam #: [id number] Bilateral CC and MLO view(s) were taken. Technologist: Mallory Naranjo, Technologist Prior study comparison: June 08, 2019, digital mammo diagnostic bilateral, performed at [facility]. April 04, 2017, bilateral digital mammo screening bilat, performed at [facility]. January 09, 2016, bilateral digital mammo screening bilat, performed at [facility]. FINDINGS: The breast tissue is almost entirely fat. The Volpara volumetric breast density category is: A. The hematoma noted on the left on the June 08, 2019 prior study has resolved. There has been no change in the appearance of the mammogram from the prior studies. There is no interval development of dominant mass, architectural distortion, or grouped microcalcification typical of malignancy. 3-D tomosynthesis shows no additional findings. Assessment: BI-RADS/ACR category 1 mammogram. Negative Mammogram. Recommendation Routine screening mammogram of both breasts in 1 year (for women over age 40). This patient's [facility] Lifetime Breast Cancer RIsk is estimated at 9.3 %. This mammogram was interpreted with the aid of an FDA-approved computer-aided dectection system. Electronically Signed By: Jay Anna MD 05/26/21 [id number]
== END ==
LOC: M WHC 13:13
PROVIDERS: ATTEND Family Medicine
DX: Z12.31 Encounter for screening mammogram for malignant neoplasm of breast (principal)

== ENCOUNTER → 2021-06-05 | Outpatient (CLI) | payer MEDICARE, MEDICAID | LOC: M RAD 08:14 | PROVIDERS: ATTEND Family Medicine | DX: Z53.20 Procedure and treatment not carried out because of patient's decision for unspecified reasons (principal) ==

== ENCOUNTER 2021-07-04 14:53 | Emergency (ER) | payer MEDICARE, MEDICAID ==
[~2021-07-04] VITALS: Ht 147.3 cm; Wt 93.8 kg
[2021-07-04 14:53] VITALS: BP 179/81
[2021-07-04] MEDS ORDERED: GI COCKTAIL 50ML BTL(HYOSCYAMINE/MAALOX/LIDOCAINE VISCOUS)(1:3:1) PO ONE (15:50)
--- NOTE | 2021-07-04 15:53 | REP ---
INDICATION: CHEST PAIN. COMPARISON: PA and lateral chest dated 04/21/2019. TECHNIQUE: Portable AP chest with the patient semi upright. FINDINGS: The lung etienne are clear. Cardiac size is enlarged, unchanged. The lizeth, mediastinum, and skeletal structures are unremarkable. IMPRESSION: Cardiomegaly, unchanged. Lung etienne are clear. <Electronically signed by Saleem Cordova > 07/04/21 1546
[2021-07-04] MEDS ORDERED: ISOVUE-370 76% 100ML VIAL As Ordered ONE (16:14)
[2021-07-04 16:15] LABS: BASO % 0.4 % (0.0-1.0); EOS # 0.1 10^3/uL (0.0-0.5); EOS % 1.4 % (0.0-3.0); HEMATOCRIT 35.1 % (36.0-47.0); HEMOGLOBIN 10.8 g/dl (12.0-15.5); LYMPH # 2.6 10^3/uL (1.5-5.0); LYMPH % 30.8 % (24.0-44.0); MEAN CORPUSCULAR HEMOGLOBIN 26.3 pg (27.0-33.0); MEAN CORPUSCULAR HGB CONC 30.8 g/dl (32.0-36.5); MEAN CORPUSCULAR VOLUME 85.6 fl (80.0-96.0); MONO # 0.7 10^3/uL (0.0-0.8); MONO % 8.7 % (2.0-8.0); NEUTROPHILS # 4.9 10^3/uL (1.5-8.5); NEUTROPHILS % 58.3 % (36.0-66.0); PLATELET COUNT, AUTOMATED 279 10^3/uL (150-450); WHITE BLOOD COUNT 8.3 10^3/uL (4.0-10.0)
--- NOTE | 2021-07-04 16:42 | REP ---
INDICATION: upper abdominal pain. COMPARISON: 03/20/2019. TECHNIQUE: Scans were obtained during contrast administration. FINDINGS: Stable 4 mm nodule left lower lobe. Lower lungs otherwise unremarkable. Heart is slightly enlarged. Liver shows normal size and attenuation. No mass, abnormal enhancement or biliary tract dilatation. Gallbladder is fluid filled without evidence of gallstone. Pancreas and spleen show normal size and attenuation. Small hiatal hernia. Adrenal glands not enlarged. Small calyceal calculus in each kidney and tiny cysts in both kidneys. No mass or hydronephrosis in either kidney. Her large and small bowel well visualized show no abnormality. Appendix unremarkable. Uterus and ovaries normal size. Calcification on the left ovary measures 7 mm. Right ovary unremarkable. No mass, adenopathy or inflammatory change in the abdomen or pelvis. IMPRESSION: Multiple calcified mesenteric lymph nodes. 7 mm calcification on the left ovary. <Electronically signed by Brenden George > 07/04/21 1353
[2021-07-04 17:05] LABS: ALBUMIN 3.8 GM/DL (3.2-5.2); ALT/SGPT 24 U/L (12-78); BILIRUBIN,DIRECT < 0.1 MG/DL (0.0-0.2); BILIRUBIN,TOTAL 0.3 MG/DL (0.2-1.0); CK-MB VALUE MASS < 1.0 NG/ML (<3.6); CPK CREATINE PHOSPHOKINASE 69 U/L (26-192); LIPASE 214 U/L (73-393); MB/CK RELATIVE INDEX 1.45 (< OR =4); TOTAL PROTEIN 7.5 GM/DL (6.4-8.2); TROPONIN I < 0.02 NG/ML (< 0.10)
[2021-07-04] MEDS ORDERED: SUCR1SS PO (17:32)
--- NOTE | 2021-07-05 07:11 | ECGEPIP ---
[facility] - ED Test Date: 2021-07-04 Pat Name: ANDREZ LIPSCOMB Department: Room: - Gender: Female Charhouse Worker: ARNULFO : 1960 Requested By: MYESHA Crabtree Order Number: [id number] Reading MD: Terrence Xiong Measurements Intervals [place] Rate: 86 P: 59 MT: 150 QRS: -3 QRSD: 134 T: 63 QT: 416 QTc: 497 Interpretive Statements Normal sinus rhythm Left bundle branch block SIMILAR TO 03/20/19 Electronically Signed on 07-05-2021 7:11:03 EDT by Terrence Xiong
--- NOTE | 2021-07-07 13:52 | ED PDOC ---
Post-Departure Follow-Up radiology report faxed to Audra Melendez MD Jul 07, 2021 13:51
== END 2021-07-04 18:02 | disposition home or self-care (01) ==
LOC: M ED 14:53
DX: K29.70 Gastritis, unspecified, without bleeding (principal); E11.9 Type 2 diabetes mellitus without complications; I11.9 Hypertensive heart disease without heart failure; I44.7 Left bundle-branch block, unspecified; N83.9 Noninflammatory disorder of ovary, fallopian tube and broad ligament, unspecified; Z86.73 Personal history of transient ischemic attack (TIA), and cerebral infarction without residual deficits; Z88.8 Allergy status to other drugs, medicaments and biological substances
CPT/HCPCS: 36415; 71045; 74177; 80047; 80076; 82550; 82553; 83690; 84484; 85025; 93005; 93041; 94760; 99284; Q9967

== ENCOUNTER → 2021-07-17 | Outpatient (CLI) | payer MEDICARE, MEDICAID ==
[~2021-07-17] MED LIST changes: +SUCR1SS PO
[2021-07-17 17:39] LABS: HEMATOCRIT 35.8 % (36.0-47.0); MEAN CORPUSCULAR HEMOGLOBIN 26.4 pg (27.0-33.0); MEAN CORPUSCULAR HGB CONC 30.7 g/dl (32.0-36.5); MEAN CORPUSCULAR VOLUME 85.9 fl (80.0-96.0); PLATELET COUNT, AUTOMATED 269 10^3/uL (150-450); RED BLOOD COUNT 4.17 10^6/uL (4.00-5.40); WHITE BLOOD COUNT 6.8 10^3/uL (4.0-10.0)
[2021-07-17 17:46] LABS: INR 0.99; PROTHROMBIN TIME 13.5 SECONDS (12.7-14.5)
[2021-07-17 17:47] LABS: PARTIAL THROMBOPLASTIN TIME 30.3 SECONDS (25.9-37.0)
[2021-07-17 18:02] LABS: CREATININE, URINE 43.4 MG/DL; MALB URINE SIEMENS 47.8 MG/L; MAU/CREAT RATIO 110.1 MCG/MG (0.0-30.0)
[2021-07-17 18:50] LABS: HEMOGLOBIN A1c 8.1 %
== END ==
LOC: M PLALAB 15:01
PROVIDERS: ATTEND Family Medicine
DX: E11.42 Type 2 diabetes mellitus with diabetic polyneuropathy (principal); R23.8 Other skin changes

== ENCOUNTER → 2021-08-01 | Outpatient (CLI) | payer MEDICARE, MEDICAID ==
--- NOTE | 2021-08-01 13:03 | REP ---
INDICATION: ABD WALL MASS/ PT NEEDS TO TAKE MED PRIOR TO SCAN. COMPARISON: CT 07/04/2021. TECHNIQUE: Multiple sequences obtained in the axial coronal planes. No contrast was administered. FINDINGS: There is a small hiatal hernia. The visualized liver is unremarkable, the dome of the liver is not visualized on axial images. The liver is mildly enlarged, on coronal images the length of the liver is 18.4 cm. Spleen is unremarkable. There is chronic left adrenal gland thickening unchanged. Spleen is homogeneous in signal. There is no pancreatic duct dilatation. The gallbladder is mildly distended and grossly unremarkable. The common bile duct is not dilated. Subcentimeter cystic structures are seen in each kidney. There is no hydronephrosis. There is no adenopathy or free fluid. No abdominal wall abnormality is seen. There is no hernia or mass identified. IMPRESSION: Small hiatal hernia. Mild hepatomegaly. Small renal cysts. No evidence of hernia or mass of the abdominal wall. <Electronically signed by Saleem Hodges > 08/01/21 1300
== END ==
LOC: M RAD 11:26
PROVIDERS: ATTEND Family Medicine
DX: K44.9 Diaphragmatic hernia without obstruction or gangrene (principal); R16.0 Hepatomegaly, not elsewhere classified; N28.1 Cyst of kidney, acquired; R22.2 Localized swelling, mass and lump, trunk

== ENCOUNTER → 2022-05-01 | Outpatient (CLI) | payer MEDICARE, MEDICAID ==
[~2022-05-01] MED LIST changes: -LISI-898 PO; +LISI5TAB11 PO; +OMEP-173 PO; -OMEP-218 PO
[2022-05-01 11:04] LABS: BASO % 0.6 % (0.0-1.0); EOS # 0.2 10^3/uL (0.0-0.5); EOS % 2.9 % (0.0-3.0); HEMATOCRIT 35.4 % (36.0-47.0); HEMOGLOBIN 10.8 g/dl (12.0-15.5); LYMPH # 2.1 10^3/uL (1.5-5.0); LYMPH % 31.4 % (24.0-44.0); MEAN CORPUSCULAR HEMOGLOBIN 26.4 pg (27.0-33.0); MEAN CORPUSCULAR HGB CONC 30.5 g/dl (32.0-36.5); MEAN CORPUSCULAR VOLUME 86.6 fl (80.0-96.0); MONO # 0.6 10^3/uL (0.0-0.8); MONO % 8.4 % (2.0-8.0); NEUTROPHILS # 3.7 10^3/uL (1.5-8.5); NEUTROPHILS % 56.1 % (36.0-66.0); PLATELET COUNT, AUTOMATED 326 10^3/uL (150-450); RED BLOOD COUNT 4.09 10^6/uL (4.00-5.40); WHITE BLOOD COUNT 6.5 10^3/uL (4.0-10.0)
[2022-05-01 11:21] LABS: HEMOGLOBIN A1c 9.2 %
[2022-05-01 11:31] LABS: ALBUMIN 3.9 GM/DL (3.2-5.2); BILIRUBIN,TOTAL 0.3 MG/DL (0.2-1.0); CALCIUM LEVEL 9.1 MG/DL (8.8-10.2); CHOLESTEROL RISK RATIO 2.769 (<5); CREATININE FOR GFR 1.05 MG/DL (0.55-1.30); GLOMERULAR FILTRATION RATE 56.3 (>45); POTASSIUM SERUM 5.1 MEQ/L (3.5-5.1); TOTAL PROTEIN 7.8 GM/DL (6.4-8.2)
[2022-05-01 12:14] LABS: MAU/CREAT RATIO 46.1 MCG/MG (0.0-30.0)
== END ==
LOC: M PLALAB 08:39
PROVIDERS: ATTEND Nurse Practitioner Family
DX: E11.42 Type 2 diabetes mellitus with diabetic polyneuropathy (principal); E78.2 Mixed hyperlipidemia; I10 Essential (primary) hypertension

== ENCOUNTER → 2022-08-06 | Outpatient (CLI) | payer MEDICARE, MEDICAID | LOC: M WHC 12:28 | PROVIDERS: ATTEND Nurse Practitioner Family | DX: Z12.31 Encounter for screening mammogram for malignant neoplasm of breast (principal) ==

== ENCOUNTER → 2022-08-29 | Outpatient (REF) | payer MEDICARE, MEDICAID ==
[2022-08-29 13:23] LABS: BASO % 0.6 % (0.0-1.0); EOS # 0.1 10^3/uL (0.0-0.5); EOS % 1.9 % (0.0-3.0); HEMATOCRIT 37.2 % (36.0-47.0); HEMOGLOBIN 11.2 g/dl (12.0-15.5); LYMPH # 2.1 10^3/uL (1.5-5.0); LYMPH % 33.3 % (24.0-44.0); MEAN CORPUSCULAR HEMOGLOBIN 25.9 pg (27.0-33.0); MEAN CORPUSCULAR HGB CONC 30.1 g/dl (32.0-36.5); MEAN CORPUSCULAR VOLUME 86.1 fl (80.0-96.0); MONO # 0.6 10^3/uL (0.0-0.8); NEUTROPHILS # 3.5 10^3/uL (1.5-8.5); NEUTROPHILS % 54.9 % (36.0-66.0); PLATELET COUNT, AUTOMATED 292 10^3/uL (150-450); RED BLOOD COUNT 4.32 10^6/uL (4.00-5.40); WHITE BLOOD COUNT 6.4 10^3/uL (4.0-10.0)
[2022-08-29 14:35] LABS: CREATININE, URINE 55.8 MG/DL; MALB URINE SIEMENS 21.3 MG/L; MAU/CREAT RATIO 38.1 MCG/MG (0.0-30.0)
[2022-08-29 15:07] LABS: ALBUMIN 3.9 GM/DL (3.2-5.2); BILIRUBIN,TOTAL 0.4 MG/DL (0.2-1.0); CALCIUM LEVEL 9.6 MG/DL (8.8-10.2); CHOLESTEROL RISK RATIO 3.428 (<5); CREATININE FOR GFR 1.06 MG/DL (0.55-1.30); GLOMERULAR FILTRATION RATE 55.7 (>45); POTASSIUM SERUM 4.8 MEQ/L (3.5-5.1); TOTAL PROTEIN 7.5 GM/DL (6.4-8.2)
[2022-08-29 17:01] LABS: TOTAL 25(OH) VITAMIN D 28.5 NG/ML (30.0-100.0)
== END ==
LOC: M SFHCADAM 08:06
PROVIDERS: ATTEND Nurse Practitioner Family
DX: E11.42 Type 2 diabetes mellitus with diabetic polyneuropathy (principal); E78.2 Mixed hyperlipidemia; I10 Essential (primary) hypertension; E55.9 Vitamin D deficiency, unspecified; E53.8 Deficiency of other specified B group vitamins; D64.9 Anemia, unspecified; Z79.899 Other long term (current) drug therapy

== ENCOUNTER → 2023-05-31 | Outpatient (REF) | payer MEDICARE, MEDICAID ==
[2023-05-31 13:15] LABS: BASO # 0.1 10^3/uL (0.0-0.2); BASO % 0.9 % (0.0-1.0); EOS # 0.2 10^3/uL (0.0-0.5); EOS % 2.6 % (0.0-3.0); HEMATOCRIT 37.3 % (36.0-47.0); HEMOGLOBIN 11.5 g/dl (12.0-15.5); LYMPH # 1.9 10^3/uL (1.5-5.0); LYMPH % 32.6 % (24.0-44.0); MEAN CORPUSCULAR HEMOGLOBIN 26.9 pg (27.0-33.0); MEAN CORPUSCULAR HGB CONC 30.8 g/dl (32.0-36.5); MEAN CORPUSCULAR VOLUME 87.1 fl (80.0-96.0); MONO # 0.6 10^3/uL (0.0-0.8); MONO % 9.5 % (2.0-8.0); NEUTROPHILS # 3.1 10^3/uL (1.5-8.5); NEUTROPHILS % 54.2 % (36.0-66.0); PLATELET COUNT, AUTOMATED 240 10^3/uL (150-450); RED BLOOD COUNT 4.28 10^6/uL (4.00-5.40); WHITE BLOOD COUNT 5.8 10^3/uL (4.0-10.0)
[2023-05-31 13:17] LABS: ALBUMIN 3.8 G/DL (3.2-5.2); ALKALINE PHOSPHATASE 76 U/L (46-116); ALT/SGPT 14 U/L (7.0-40); AST/SGOT < 8 U/L (<34); BILIRUBIN,TOTAL 0.4 MG/DL (0.3-1.2); BLOOD UREA NITROGEN 34 MG/DL (9-23); CALCIUM LEVEL 10.4 MG/DL (8.3-10.6); CARBON DIOXIDE LEVEL 26 MMOL/L (20-31); CHLORIDE LEVEL 106 MMOL/L (98-107); CHOLESTEROL LEVEL 141 MG/DL (<200); CHOLESTEROL RISK RATIO 2.72 (<5); GLOMERULAR FILTRATION RATE 59.4 (>45); GLUCOSE, FASTING 194 MG/DL (74-106); HDL CHOLESTEROL 51.7 MG/DL (>40); LDL CHOLESTEROL 64.5 MG/DL (<100); NON-HDL-C 89.3 MG/DL; POTASSIUM SERUM 4.9 MMOL/L (3.5-5.1); SODIUM LEVEL 138 MMOL/L (136-145); TOTAL PROTEIN 7.1 G/DL (5.7-8.2); TRIGLYCERIDES LEVEL 124 MG/DL (<150)
[2023-05-31 13:36] LABS: CREATININE, URINE 50.9 MG/DL
[2023-05-31 13:37] LABS: MAU/CREAT RATIO 76.6 MCG/MG (0.0-30.0)
== END ==
LOC: M SFHCADAM 08:20
PROVIDERS: ATTEND Nurse Practitioner Family
DX: E11.42 Type 2 diabetes mellitus with diabetic polyneuropathy (principal); I10 Essential (primary) hypertension; E78.2 Mixed hyperlipidemia

== ENCOUNTER → 2023-07-26 | Outpatient (CLI) | payer MEDICARE, MEDICAID | LOC: M WHC 07:36 | PROVIDERS: ATTEND Nurse Practitioner Family | DX: R22.2 Localized swelling, mass and lump, trunk (principal) ==

== ENCOUNTER → 2023-12-02 | Outpatient (REF) | payer MEDICARE, MEDICAID ==
[2023-12-02 14:20] LABS: BASO # 0.1 10^3/uL (0.0-0.2); BASO % 0.8 % (0.0-1.0); EOS # 0.2 10^3/uL (0.0-0.5); EOS % 2.7 % (0.0-3.0); HEMOGLOBIN 11.8 g/dl (12.0-15.5); LYMPH # 2.3 10^3/uL (1.5-5.0); LYMPH % 36.9 % (24.0-44.0); MEAN CORPUSCULAR HEMOGLOBIN 27.1 pg (27.0-33.0); MEAN CORPUSCULAR HGB CONC 31.1 g/dl (32.0-36.5); MEAN CORPUSCULAR VOLUME 87.2 fl (80.0-96.0); MONO # 0.7 10^3/uL (0.0-0.8); MONO % 11.5 % (2.0-8.0); NEUTROPHILS % 47.8 % (36.0-66.0); PLATELET COUNT, AUTOMATED 264 10^3/uL (150-450); RED BLOOD COUNT 4.36 10^6/uL (4.00-5.40); WHITE BLOOD COUNT 6.2 10^3/uL (4.0-10.0)
[2023-12-02 14:38] LABS: CREATININE, URINE 44.6 MG/DL; MAU/CREAT RATIO 11.2 MCG/MG (0.0-30.0)
[2023-12-02 14:39] LABS: ALBUMIN 3.9 G/DL (3.2-5.2); ALKALINE PHOSPHATASE 78 U/L (46-116); ALT/SGPT 17 U/L (7.0-40); AST/SGOT 13 U/L (<34); BILIRUBIN,TOTAL 0.3 MG/DL (0.3-1.2); BLOOD UREA NITROGEN 34 MG/DL (9-23); CALCIUM LEVEL 9.6 MG/DL (8.3-10.6); CARBON DIOXIDE LEVEL 27 MMOL/L (20-31); CHLORIDE LEVEL 105 MMOL/L (98-107); CHOLESTEROL LEVEL 145 MG/DL (<200); CHOLESTEROL RISK RATIO 2.72 (<5); CREATININE FOR GFR 0.93 MG/DL (0.55-1.30); GLOMERULAR FILTRATION RATE > 60.0 (>45); GLUCOSE, FASTING 183 MG/DL (74-106); HDL CHOLESTEROL 53.3 MG/DL (>40); LDL CHOLESTEROL 67.3 MG/DL (<100); NON-HDL-C 91.7 MG/DL; POTASSIUM SERUM 4.8 MMOL/L (3.5-5.1); SODIUM LEVEL 138 MMOL/L (136-145); TOTAL PROTEIN 7.1 G/DL (5.7-8.2); TRIGLYCERIDES LEVEL 122 MG/DL (<150)
[2023-12-02 14:44] LABS: HEMOGLOBIN A1c 7.9 % (4.0-6.0)
== END ==
LOC: M SFHCADAM 07:43
PROVIDERS: ATTEND Nurse Practitioner Family
DX: E11.42 Type 2 diabetes mellitus with diabetic polyneuropathy (principal); E78.2 Mixed hyperlipidemia

== ENCOUNTER 2024-01-01 10:57 | Emergency (ER) | payer MEDICARE, MEDICAID ==
[~2024-01-01] VITALS: Ht 144.8 cm; Wt 86.5 kg
[2024-01-01] MEDS ORDERED: JARD1TAB PO (11:13)
[2024-01-01] MEDS: NS 1,000 ML IV ONE (14:08)
[2024-01-01 14:11] LABS: BASO % 0.4 % (0.0-1.0); EOS # 0.1 10^3/uL (0.0-0.5); EOS % 0.9 % (0.0-3.0); HEMATOCRIT 36.1 % (36.0-47.0); HEMOGLOBIN 11.1 g/dl (12.0-15.5); LYMPH # 2.3 10^3/uL (1.5-5.0); LYMPH % 29.5 % (24.0-44.0); MEAN CORPUSCULAR HEMOGLOBIN 26.6 pg (27.0-33.0); MEAN CORPUSCULAR HGB CONC 30.7 g/dl (32.0-36.5); MEAN CORPUSCULAR VOLUME 86.6 fl (80.0-96.0); MONO # 0.7 10^3/uL (0.0-0.8); MONO % 9.6 % (2.0-8.0); NEUTROPHILS # 4.6 10^3/uL (1.5-8.5); NEUTROPHILS % 59.2 % (36.0-66.0); PLATELET COUNT, AUTOMATED 324 10^3/uL (150-450); RED BLOOD COUNT 4.17 10^6/uL (4.00-5.40); WHITE BLOOD COUNT 7.7 10^3/uL (4.0-10.0)
[2024-01-01 14:23] LABS: INR 1.14; PROTHROMBIN TIME 14.3 SECONDS (12.5-14.5)
[2024-01-01 14:24] LABS: PARTIAL THROMBOPLASTIN TIME 29.8 SECONDS (24.8-34.2)
[2024-01-01 14:34] LABS: LIPASE 39 U/L (12-53)
[2024-01-01 14:36] LABS: CK-MB VALUE MASS < 1.0 NG/ML (<3.6)
[2024-01-01 14:37] LABS: ALBUMIN 3.7 G/DL (3.2-5.2); ALKALINE PHOSPHATASE 84 U/L (46-116); ALT/SGPT 12 U/L (7.0-40); AST/SGOT 11 U/L (<34); BILIRUBIN,DIRECT < 0.1 MG/DL (<0.4); BILIRUBIN,TOTAL 0.2 MG/DL (0.3-1.2); BLOOD UREA NITROGEN 34 MG/DL (9-23); CALCIUM LEVEL 9.9 MG/DL (8.3-10.6); CARBON DIOXIDE LEVEL 23 MMOL/L (20-31); CHLORIDE LEVEL 106 MMOL/L (98-107); CREATININE FOR GFR 0.97 MG/DL (0.55-1.30); GLOMERULAR FILTRATION RATE > 60.0 (>45); GLUCOSE, FASTING 128 MG/DL (74-106); POTASSIUM SERUM 5.1 MMOL/L (3.5-5.1); SODIUM LEVEL 139 MMOL/L (136-145); TOTAL PROTEIN 7.6 G/DL (5.7-8.2)
[2024-01-01 14:44] LABS: CPK CREATINE PHOSPHOKINASE 49 U/L (34-145); MB/CK RELATIVE INDEX 2.04 (< OR =4)
[2024-01-01] MEDS ORDERED: ISOVUE-370 76% 100ML VIAL As Ordered ONE (15:22)
[2024-01-01 17:17] VITALS: BP 138/63; TEMP 96.7; O2SAT 98
[2024-01-01 18:42] LABS: FREE T4 1.38 NG/DL (0.89-1.76); THYROID STIMULATING HORMONE 1.606 uIU/ML (0.55-4.78)
== END 2024-01-01 18:50 | disposition left against medical advice (07) ==
LOC: M ED 10:57
DX: H92.02 Otalgia, left ear (principal); I44.4 Left anterior fascicular block; I49.8 Other specified cardiac arrhythmias; E11.9 Type 2 diabetes mellitus without complications; I10 Essential (primary) hypertension; K44.9 Diaphragmatic hernia without obstruction or gangrene; E78.5 Hyperlipidemia, unspecified; Z87.442 Personal history of urinary calculi; Z88.8 Allergy status to other drugs, medicaments and biological substances; Z79.82 Long term (current) use of aspirin; Z79.811 Long term (current) use of aromatase inhibitors; Z79.891 Long term (current) use of opiate analgesic; Z79.899 Other long term (current) drug therapy; Z53.9 Procedure and treatment not carried out, unspecified reason
CPT/HCPCS: 36415; 70480; 71046; 71275; 76536; 80048; 80076; 82550; 82553; 83690; 83880; 84439; 84443; 84484; 85025; 85610; 85730; 93005; 94760; 99284; Q9967

== ENCOUNTER → 2024-04-03 | Outpatient (REF) | payer MEDICARE, MEDICAID ==
[~2024-04-03] MED LIST changes: +JARD1TAB PO
[2024-04-03 13:59] LABS: BASO % 0.5 % (0.0-1.0); EOS # 0.1 10^3/uL (0.0-0.5); EOS % 2.2 % (0.0-3.0); HEMATOCRIT 38.4 % (36.0-47.0); HEMOGLOBIN 11.9 g/dl (12.0-15.5); LYMPH # 2.3 10^3/uL (1.5-5.0); LYMPH % 35.7 % (24.0-44.0); MEAN CORPUSCULAR VOLUME 87.1 fl (80.0-96.0); MONO # 0.6 10^3/uL (0.0-0.8); MONO % 9.6 % (2.0-8.0); NEUTROPHILS # 3.3 10^3/uL (1.5-8.5); NEUTROPHILS % 51.5 % (36.0-66.0); PLATELET COUNT, AUTOMATED 279 10^3/uL (150-450); RED BLOOD COUNT 4.41 10^6/uL (4.00-5.40); WHITE BLOOD COUNT 6.3 10^3/uL (4.0-10.0)
[2024-04-03 14:14] LABS: ALBUMIN 3.8 G/DL (3.2-5.2); BILIRUBIN,TOTAL 0.3 MG/DL (0.3-1.2); CHOLESTEROL RISK RATIO 2.84 (<5); GLOMERULAR FILTRATION RATE 59.2 (>45); HDL CHOLESTEROL 51.6 MG/DL (>40); LDL CHOLESTEROL 68.4 MG/DL (<100); MAGNESIUM LEVEL 1.8 MG/DL (1.8-2.4); NON-HDL-C 95.4 MG/DL; POTASSIUM SERUM 4.9 MMOL/L (3.5-5.1); TOTAL PROTEIN 7.3 G/DL (5.7-8.2)
[2024-04-03 14:23] LABS: CREATININE, URINE 53.6 MG/DL; TOTAL 25(OH) VITAMIN D 22.9 NG/ML (20.0-100.0)
[2024-04-03 14:24] LABS: MAU/CREAT RATIO 9.3 MCG/MG (0.0-30.0)
[2024-04-03 14:43] LABS: HEMOGLOBIN A1c 7.6 % (4.0-6.0)
== END ==
LOC: M SFHCADAM 07:36
PROVIDERS: ATTEND Nurse Practitioner Family
DX: E11.42 Type 2 diabetes mellitus with diabetic polyneuropathy (principal); E78.2 Mixed hyperlipidemia; I10 Essential (primary) hypertension; E55.9 Vitamin D deficiency, unspecified; E53.8 Deficiency of other specified B group vitamins

== ENCOUNTER → 2024-07-10 | Outpatient (CLI) | payer MEDICARE, MEDICAID ==
[2024-07-10 15:14] LABS: ALBUMIN 4.1 G/DL (3.2-5.2); BILIRUBIN,TOTAL 0.4 MG/DL (0.3-1.2); CALCIUM LEVEL 10.1 MG/DL (8.3-10.6); CREATININE FOR GFR 1.08 MG/DL (0.55-1.30); GLOMERULAR FILTRATION RATE 54.2 (>45); POTASSIUM SERUM 5.1 MMOL/L (3.5-5.1); TOTAL PROTEIN 7.8 G/DL (5.7-8.2)
[2024-07-10 15:17] LABS: FREE T4 1.63 NG/DL (0.89-1.76)
[2024-07-10 15:18] LABS: THYROID STIMULATING HORMONE 1.922 uIU/ML (0.55-4.78)
[2024-07-10 16:11] LABS: HEMOGLOBIN A1c 8.1 % (4.0-6.0)
== END ==
LOC: M PLALAB 12:07
PROVIDERS: ATTEND Nurse Practitioner Family
DX: E11.42 Type 2 diabetes mellitus with diabetic polyneuropathy (principal); E04.2 Nontoxic multinodular goiter

== ENCOUNTER → 2024-11-04 | Outpatient (REF) | payer MEDICARE, MEDICAID ==
[~2024-11-04] MED LIST changes: +GABA-1172 PO; -GABA-282 PO; +GLIP10TA15 PO; -GLIP10TA6 PO
[2024-11-04 13:42] LABS: BASO # 0.1 10^3/uL (0.0-0.2); BASO % 0.7 % (0.0-1.0); EOS # 0.2 10^3/uL (0.0-0.5); EOS % 2.7 % (0.0-3.0); HEMATOCRIT 36.5 % (36.0-47.0); HEMOGLOBIN 11.4 g/dl (12.0-15.5); LYMPH # 2.5 10^3/uL (1.5-5.0); LYMPH % 35.2 % (24.0-44.0); MEAN CORPUSCULAR HGB CONC 31.2 g/dl (32.0-36.5); MEAN CORPUSCULAR VOLUME 86.5 fl (80.0-96.0); MONO # 0.6 10^3/uL (0.0-0.8); MONO % 8.7 % (2.0-8.0); NEUTROPHILS # 3.7 10^3/uL (1.5-8.5); NEUTROPHILS % 52.3 % (36.0-66.0); PLATELET COUNT, AUTOMATED 276 10^3/uL (150-450); RED BLOOD COUNT 4.22 10^6/uL (4.00-5.40)
[2024-11-04 14:17] LABS: CREATININE, URINE 92.1 MG/DL
[2024-11-04 14:18] LABS: MAU/CREAT RATIO 20.6 MCG/MG (0.0-30.0)
[2024-11-04 14:19] LABS: ALBUMIN 3.7 G/DL (3.2-5.2); BILIRUBIN,TOTAL 0.4 MG/DL (0.3-1.2); CHOLESTEROL RISK RATIO 2.94 (<5); CREATININE FOR GFR 1.01 MG/DL (0.55-1.30); GLOMERULAR FILTRATION RATE 58.6 (>45); HDL CHOLESTEROL 46.9 MG/DL (>40); LDL CHOLESTEROL 65.3 MG/DL (<100); NON-HDL-C 91.1 MG/DL; POTASSIUM SERUM 4.6 MMOL/L (3.5-5.1); TOTAL PROTEIN 7.4 G/DL (5.7-8.2)
[2024-11-04 14:35] LABS: HEMOGLOBIN A1c 7.6 % (4.0-6.0)
== END ==
LOC: M SFHCADAM 07:35
PROVIDERS: ATTEND Nurse Practitioner Family
DX: E11.42 Type 2 diabetes mellitus with diabetic polyneuropathy (principal); I10 Essential (primary) hypertension; E78.2 Mixed hyperlipidemia; E53.8 Deficiency of other specified B group vitamins; E55.9 Vitamin D deficiency, unspecified

== ENCOUNTER → 2025-10-27 | Outpatient (REF) | payer MEDICARE, MEDICAID ==
[~2025-10-27] MED LIST changes: -BYDU2INJ7 SC; +EXEN2AUT SC
[2025-10-27 14:12] LABS: ALT/SGPT 21.0 U/L (7.0-40); AST/SGOT 19.0 U/L (<34); CALCIUM LEVEL 9.2 MG/DL (8.3-10.6); CARBON DIOXIDE LEVEL 28.0 MMOL/L (20-31); CHLORIDE LEVEL 105.0 MMOL/L (98-107); CHOLESTEROL LEVEL 191.0 MG/DL (<200); CHOLESTEROL RISK RATIO 3.46 (<5); CREATININE FOR GFR 1.01 MG/DL (0.55-1.30); GLOMERULAR FILTRATION RATE 61.4 (>45); LDL CHOLESTEROL 117.2 MG/DL (<100); NON-HDL-C 135.8 MG/DL; POTASSIUM SERUM 4.4 MMOL/L (3.5-5.1); SODIUM LEVEL 141.0 MMOL/L (136-145); TRIGLYCERIDES LEVEL 93.0 MG/DL (<150)
[2025-10-27 14:14] LABS: TOTAL 25(OH) VITAMIN D 32.7 NG/ML (20.0-100.0); VITAMIN B12 LEVEL 481.0 PG/ML (211-911)
[2025-10-27 14:16] LABS: BASO # 0.0 10^3/uL (0.0-0.2); BASO % 0.6 % (0.0-1.0); EOS # 0.1 10^3/uL (0.0-0.5); EOS % 2.1 % (0.0-3.0); LYMPH # 2.4 10^3/uL (1.5-5.0); LYMPH % 39.2 % (24.0-44.0); MONO # 0.6 10^3/uL (0.0-0.8); MONO % 9.9 % (2.0-8.0); NEUTROPHILS # 3.0 10^3/uL (1.5-8.5); NEUTROPHILS % 47.9 % (36.0-66.0); PLATELET COUNT, AUTOMATED 266 10^3/uL (150-450)
[2025-10-27 14:36] LABS: ESTIMATED AVERAGE GLUCOSE 189.0 MG/DL (60-110)
[2025-10-27 14:49] LABS: CREATININE, URINE 43.6 MG/DL
[2025-10-27 14:50] LABS: MALB URINE SIEMENS < 3.0 MG/L
== END ==
LOC: M SFHCPLAZ 07:26
PROVIDERS: ATTEND Nurse Practitioner Family
DX: E53.8 Deficiency of other specified B group vitamins (principal); E11.42 Type 2 diabetes mellitus with diabetic polyneuropathy; E55.9 Vitamin D deficiency, unspecified; E78.2 Mixed hyperlipidemia